=== PATIENT | female | born 1980 | race Two or more races ===

== ENCOUNTER → 2021-05-02 11:15 | Outpatient (BNVA) | payer MEDICAID, SELFPAY | PROVIDERS: PCP Internal Medicine | DX: R39.15 Urgency of urination (principal) | CPT/HCPCS: 51798; 99212 ==

== ENCOUNTER 2022-09-12 17:10 | Outpatient (REF) | payer MEDICAID, SELFPAY ==
--- NOTE | ~2022-09-12 | XR_ITS ---
EXAMINATION: XR FOOT, LEFT XR TOES, LEFT CLINICAL INFORMATION: Left great toe pain. COMPARISON: None available. TECHNIQUE: AP, lateral, and oblique views of the left foot. 2 views of the left great toe were obtained. FINDINGS: The bones and soft tissues are normal. No fracture, dislocation or left ankle joint effusion is seen. There is no abnormal bone erosion. Alignment is anatomic. Joint spaces are maintained. Bolus angle is normal. There is no calcaneal spur. XR/XR toe LT min 2V IMPRESSION: Normal left foot and great toe.
--- NOTE | ~2022-09-12 | XR_ITS ---
EXAMINATION: XR FOOT, LEFT XR TOES, LEFT CLINICAL INFORMATION: Left great toe pain. COMPARISON: None available. TECHNIQUE: AP, lateral, and oblique views of the left foot. 2 views of the left great toe were obtained. FINDINGS: The bones and soft tissues are normal. No fracture, dislocation or left ankle joint effusion is seen. There is no abnormal bone erosion. Alignment is anatomic. Joint spaces are maintained. Bolus angle is normal. There is no calcaneal spur. XR/XR foot LT min 3V IMPRESSION: Normal left foot and great toe.
== END 2022-09-12 17:11 | disposition home or self-care (01) ==
LOC: HO.XRAY 17:10
PROVIDERS: Absent Provider Internal Medicine; PCP Internal Medicine; Visit Provider Family Medicine
DX: M79.675 Pain in left toe(s) (principal); R60.0 Localized edema
CPT/HCPCS: 73630; 73660

== ENCOUNTER 2022-11-19 15:34 | Outpatient (REF) | payer MEDICAID, SELFPAY ==
--- NOTE | ~2022-11-19 | XR_ITS ---
EXAMINATION: XR KNEE, RIGHT CLINICAL INFORMATION: Pain COMPARISON: None available. TECHNIQUE: Four views of the right knee. FINDINGS: No evidence of acute fracture or dislocation.. Small-moderate joint effusion. Alignment is anatomic. Joint spaces are well maintained. No abnormal soft tissue calcification. XR/XR knee RT 3V IMPRESSION: No evidence of acute osseous abnormality. Small-moderate joint effusion.
--- NOTE | ~2022-11-19 | XR_ITS ---
EXAMINATION: XR ELBOW, RIGHT CLINICAL INFORMATION: Elbow pain 3 months COMPARISON: None available. TECHNIQUE: Four views of the right elbow. FINDINGS: No evidence of acute fracture or dislocation. No significant joint effusion. Alignment is anatomic. Joint spaces are maintained. No abnormal soft tissue calcification. XR/XR elbow RT min 3V IMPRESSION: No evidence of acute osseous abnormality.
== END 2022-11-19 15:35 | disposition home or self-care (01) ==
LOC: HO.HHCX 15:34
PROVIDERS: Visit Provider Emergency Medicine
DX: M25.561 Pain in right knee (principal); M25.521 Pain in right elbow
CPT/HCPCS: 73080; 73562

== ENCOUNTER 2023-01-01 14:05 | Emergency (ER) | payer MEDICAID, SELFPAY ==
[2023-01-01] VITALS (7 sets, daily range): BP systolic 97–125; BP diastolic 49–80; PULSE 61–84; RESP 16–20; TEMP 36.7; O2SAT 98–100; BMI 29.5
--- NOTE | 2023-01-01 14:21 | PC.NURSE ---
Arrived via ems from home complaining of nausea, and vomiting x 2 days.States 7/10 abdominal pain. Denies si/HI but states her son in this hospital a month ago and she has been having a hard time. States she has been drinking more than normal, not eating well, and smokes cigarettes and marijuana. Denies chest pain, sob, and diarrhea. States that takes saboxone daily and that she just took a small part of her normal dose.
--- NOTE | 2023-01-01 15:59 | ED.ABDPAIN ---
HPI - Abdominal Pain General Chief Complaint: Abdominal Pain Stated Complaint: nausea, vomiting x 2 days Time Seen by Provider: 01/01/23 14:50 Source: patient and EMS Mode of arrival: EMS Limitations: no limitations History of Present Illness HPI narrative: 42-year-old female with no major medical problems presents with epigastric abdominal pain. Pain is 7/10. The pain is epigastric. Does not radiate. Associated with nausea vomiting patient denies any diarrhea constipation. The pain can radiate up to her esophagus. She described as burning in nature. There are no clear relieving or exacerbating features patient also reports poor oral intake. Related Data Home Medications Medication Instructions Recorded Confirmed amitriptyline 10 mg tablet 10 mg PO BEDTIME 05/02/21 buprenorphine 4 mg-naloxone 1 mg 5 mg sublingual BID 05/02/21 sublingual film (Suboxone) clonazepam 1 mg tablet 1 mg PO TID PRN 05/02/21 duloxetine 20 mg capsule,delayed 20 mg PO DAILY 05/02/21 release omeprazole 20 mg capsule,delayed 20 mg PO DAILY 05/02/21 release ondansetron 4 mg disintegrating 4 mg PO Q12H PRN nausea 05/02/21 tablet quetiapine 25 mg tablet 25 mg PO BEDTIME 05/02/21 Previous Rx's Medication Instructions Recorded oxybutynin chloride 10 mg 10 mg PO DAILY OAB 30 days #90 tabs 10/01/21 tablet,extended release 24 hr dicyclomine 20 mg tablet 20 mg PO QID #20 tabs 01/01/23 omeprazole 40 mg capsule,delayed 40 mg PO DAILY #20 caps 01/01/23 release Allergies Allergy/AdvReac Type Severity Reaction Status Date / Time aspirin [ASPIRIN] Allergy Unknown SWELLING, Verified 05/02/21 11:32 hives Review of Systems Review of Systems CONSTITUTIONAL: Denies weight loss, fever and chills. HEENT: Denies changes in vision and hearing. RESPIRATORY: Denies SOB and cough. CV: Denies palpitations no CP. GI: + abdominal pain, nausea, vomiting no diarrhea. : Denies dysuria and urinary frequency. MSK: Denies myalgia and joint pain. SKIN: Denies rash and pruritus. NEUROLOGICAL: Denies headache and syncope. PSYCHIATRIC: Denies recent changes in mood. + anxiety and depression. All other ROS are negative unless in HPI PMFSH Past Medical History Medical History Anxiety Constipation Continuous severe abdominal pain Drug abuse and dependence Epigastric pain Gallstone Gastritis Headache, migraine History of kidney stones Insomnia Narcotic abuse Oropharyngeal dysphagia Overactive bladder Thalamic pain syndrome (hyperesthetic) Surgical History History of surgery Social History Social History Alcohol intake: current Alcohol intake frequency: 0-2 drinks per day Patient Tobacco Use Status: Current everyday Tobacco user Smoked in Last 30 Days: Yes Use of substances other than those prescribed or required for medical reasons: Yes Substance Use Type: Marijuana Any prior treatment program specific to substance use: Yes Advance Directives: No Advance Directives Information Provided: Yes Patient : No Physical Exam ED Vital Signs: Vital Signs - 24 hr 01/01/23 14:14 01/01/23 14:30 01/01/23 16:00 Temperature 98.1 F 98.1 F Pulse Rate 84 84 80 Respiratory Rate 18 18 18 Blood Pressure 116/73 116/73 116/67 Pulse Oximetry 100 100 98 Oxygen Delivery Method Room Air Room Air Room Air 01/01/23 17:59 01/01/23 19:07 01/01/23 20:00 Temperature 98.1 F Pulse Rate 63 69 62 Respiratory Rate 18 20 16 Blood Pressure 114/54 L 99/51 L 101/49 L Pulse Oximetry 98 99 98 Oxygen Delivery Method Room Air Room Air Room Air BMI result Body Mass Index 29.5 GEN: Well developed, no acute distress, alert, oriented HEENT: Normocephalic, atraumatic, normal external ears, nose appears normal, no oropharyngeal edema or exudates Eyes: Normal to appearance Neck: Supple, no lymphadenopathy Respiratory: Talks in complete sentences, no respiratory distress, clear to auscultation bilaterally Cardiovascular: Regular rate and rhythm, no murmurs rubs or gallops Abdomen: Soft, nontender, nondistended, no guarding, no rebound Back: No CVA tenderness Extremities: No clubbing cyanosis or edema Neurologic: No focal neurologic deficits, cranial nerves 2-12 intact, strength is 5/5 bilaterally Skin: No rash Course Course Course Narrative: Patient is complaining of epigastric abdominal pain. She does have elevated LFTs. Bilirubin is also normal as is alk-phos. I suspect this is alcohol related given the pattern. Will order an ultrasound. Lipase is normal arguing against acute pancreatitis. I still suspect patient has gastritis. Will order complete abdominal ultrasound. Reevaluation(s) Reevaluation #1: Patient's workup is complete. Ultrasound did not show any 6 acute abnormalities of the aorta including no aneurysm or obvious dissection. She had no evidence of biliary obstruction. There is a nonobstructing kidney stone on left but this is not causing her symptoms. Patient now reports having had nausea vomiting for 5 years. 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 At this time, I will try Reglan 10 mg 4 times daily including 30 minutes before eating and once before bed. I will also start the patient on omeprazole 40 mg daily. Time: 21:13 Medical Decision Making Medical Decision Making [facility] Narrative: 42-year-old female presents with epigastric abdominal pain. Pain is rated as 7/10. However, patient's abdominal exam is benign. There is no epigastric tenderness, rebound or guarding. Negative Mcallister sign, negative McBurney's point tenderness. There is no abdominal distention. Differential diagnosis includes abdominal pain, gastritis, peptic ulcer disease, pancreatitis, IBD, IBS, gastroenteritis, biliary colic, cardiac, unlikely to be AAA, dissection Plan: Check routine laboratory analysis, symptomatic relief with PPI, antiemetic, GI cocktail. Will re-evaluate. If her abdominal tenderness exam changes, would consider imaging either ultrasound or CT scan. Disposition: I suspect patient will be able to be discharged. However, possible admission for uncontrolled abdominal pain or significant acute findings. Differential Diagnosis Differential Diagnoses: The differential diagnosis associated with the presentation includes (See above) Chronic nausea, epigastric abdominal pain Admission/Observation Consideration of admission/observation: Escalation of care including admission/observation considered Lab Data [facility] Lab Attestation statement: I reviewed the patient's lab results. 01/01/23 15:38 01/01/23 15:38 Labs: Lab Results 01/01/23 01/01/23 01/01/23 Range/Units 15:38 15:38 15:38 WBC 8.2 (4.8-10.8) X10*3/uL RBC 4.39 (4.20-5.50) X10*6/uL Hgb 13.2 (12.0-16.0) g/dl Hct 39.1 (37.0-47.0) % MCV 89.1 (80.0-98.0) fL MCH 30.1 (27.0-33.0) pg MCHC 33.8 (31.0-35.0) g/dl RDW 13.7 (11.0-16.0) % Plt Count 263 (160-400) X10*3/uL MPV 9.5 (9.4-12.3) fL Immature Gran % (Auto) 0.4 (0.0-0.4) % Neut % (Auto) 79.8 H (45-73) % Lymph % (Auto) 14.5 L (20-40) % [place] % (Auto) 5.1 (2-11) % Eos % (Auto) 0.0 (0-4) % Baso % (Auto) 0.2 (0-2) % Lymph # (Auto) 1.2 (1.2-4.9) X10*3/uL [place] # (Auto) 0.4 (0.1-1.2) X10*3/uL Eos # (Auto) 0.0 (0.0-0.4) X10*3/uL Baso # (Auto) 0.0 (0.0-0.2) X10*3/uL Abs Immat Gran (auto) 0.03 (0.00-0.03) X10*3/uL Absolute Neuts (auto) 6.6 (2.0-8.3) x10*3/uL Absolute Nucleated RBC 0.000 (0.0-0.012) X10*3/uL Nucleated RBC % (auto) 0.0 (0.0-0.2) /100WBC Sodium 143 (135-145) mmol/L Potassium 4.6 (3.3-5.1) mmol/L Chloride 107 (96-108) mmol/L Carbon Dioxide 25 (22-29) mmol/L Anion Gap 16 (12-20) BUN 7 L (9-16) mg/dL Creatinine 0.73 (0.5-1.4) mg/dL Estim Creat Clear Calc 111.4 Estimated GFR > 60 Random Glucose 103 (60-115) mg/dL Calcium 9.4 (8.4-10.2) mg/dL Total Bilirubin 0.6 (0.0-1.0) mg/dL AST 209 H (5-31) U/L ALT 125 H (0-31) U/L Alkaline Phosphatase 107 (39-117) U/L Troponin I High Sens < 2.7 (<3.5-17.0) ng/L Total Protein 8.3 H (6.5-8.0) g/dL Albumin 4.5 (3.5-5.0) g/dL Lipase (8-78) U/L Urine Color Urine Appearance Urine pH (5.0-9.0) Ur Specific [place] (1.005-1.025) Urine Protein (Neg-Trace) mg/dL Urine Glucose (UA) (Negative) mg/dL Urine Ketones (Negative) mg/dL Urine Blood (Negative) Urine Nitrite (Negative) Ur Leukocyte Esterase (Negative) Urine Opiates Screen (Not Detect) Urine Fentanyl Screen (Not Detect) Ur Barbiturates Screen (Not Detect) Ur Phencyclidine Scrn (Not Detect) Ur Amphetamines Screen (Not Detect) U Benzodiazepines Scrn (Not Detect) Urine Cocaine Screen (Not Detect) U Marijuana (THC) Screen (Not Detect) Ethyl Alcohol mg/dL 01/01/23 01/01/23 01/01/23 Range/Units 15:38 18:33 18:33 WBC (4.8-10.8) X10*3/uL RBC (4.20-5.50) X10*6/uL Hgb (12.0-16.0) g/dl Hct (37.0-47.0) % MCV (80.0-98.0) fL MCH (27.0-33.0) pg MCHC (31.0-35.0) g/dl RDW (11.0-16.0) % Plt Count (160-400) X10*3/uL MPV (9.4-12.3) fL Immature Gran % (Auto) (0.0-0.4) % Neut % (Auto) (45-73) % Lymph % (Auto) (20-40) % [place] % (Auto) (2-11) % Eos % (Auto) (0-4) % Baso % (Auto) (0-2) % Lymph # (Auto) (1.2-4.9) X10*3/uL [place] # (Auto) (0.1-1.2) X10*3/uL Eos # (Auto) (0.0-0.4) X10*3/uL Baso # (Auto) (0.0-0.2) X10*3/uL Abs Immat Gran (auto) (0.00-0.03) X10*3/uL Absolute Neuts (auto) (2.0-8.3) x10*3/uL Absolute Nucleated RBC (0.0-0.012) X10*3/uL Nucleated RBC % (auto) (0.0-0.2) /100WBC Sodium (135-145) mmol/L Potassium (3.3-5.1) mmol/L Chloride (96-108) mmol/L Carbon Dioxide (22-29) mmol/L Anion Gap (12-20) BUN (9-16) mg/dL Creatinine (0.5-1.4) mg/dL Estim Creat Clear Calc Estimated GFR Random Glucose (60-115) mg/dL Calcium (8.4-10.2) mg/dL Total Bilirubin (0.0-1.0) mg/dL AST (5-31) U/L ALT (0-31) U/L Alkaline Phosphatase (39-117) U/L Troponin I High Sens (<3.5-17.0) ng/L Total Protein (6.5-8.0) g/dL Albumin (3.5-5.0) g/dL Lipase 12 (8-78) U/L Urine Color Yellow Urine Appearance Clear Urine pH 7.5 (5.0-9.0) Ur Specific [place] 1.020 (1.005-1.025) Urine Protein Trace (Neg-Trace) mg/dL Urine Glucose (UA) Negative (Negative) mg/dL Urine Ketones Negative (Negative) mg/dL Urine Blood Negative (Negative) Urine Nitrite Negative (Negative) Ur Leukocyte Esterase Negative (Negative) Urine Opiates Screen Not Detected (Not Detect) Urine Fentanyl Screen Not Detected (Not Detect) Ur Barbiturates Screen Not Detected (Not Detect) Ur Phencyclidine Scrn Not Detected (Not Detect) Ur Amphetamines Screen Not Detected (Not Detect) U Benzodiazepines Scrn Not Detected (Not Detect) Urine Cocaine Screen Not Detected (Not Detect) U Marijuana (THC) Screen POSITIVE H (Not Detect) Ethyl Alcohol < 10 mg/dL Independent Interpretation I performed an independent interpretation of an: EKG (Normal sinus rhythm heart rate 65, normal intervals, no acute ST elevations or depressions) and Ultrasound (No acute findings) Radiology Impression Discussion of test interpretation with radiology: I have reviewed the radiologist's reading. ( US/US abdomen complete IMPRESSION: Left renal stone otherwise unremarkable exam. Dictated By:Louise Burgess MDSigned By:<Electronically signed by Louise Burgess MD in [place]>01/01/232027) Tests considered The following testing was considered but not selected: Ultrasound, CT Prescription Management I considered prescription management with: Pain Medication Chronic Conditions Patient?s care impacted by: Other (Psychological disorders) Medications Administered Discontinued Medications Generic Name Dose Route Start Last Admin Trade Name Freq PRN Reason Stop Dose Admin Al Hydroxide/Mg Hydroxide 30 ml 01/01/23 14:54 01/01/23 16:18 Magnesium Hydrox/Alum Hydrox 30 Ml Oral.Susp PO 01/01/23 14:55 30 ml ONCE ONE Administration Belladonna Alkaloids/Phenobarbital 10 ml 01/01/23 14:54 01/01/23 16:18 Phenobarb/Hyoscy/Atropine/Scop 10 Ml Elixir PO 01/01/23 14:55 10 ml ONCE ONE Administration Famotidine 20 mg 01/01/23 14:54 01/01/23 16:21 Famotidine/Pf 20 Mg/2 Ml Vial IVPUSH 01/01/23 14:55 20 mg ONCE ONE Administration Sodium Chloride 1,000 mls @ 999 mls/hr 01/01/23 15:00 01/01/23 17:58 Ns IV 01/01/23 16:00 Infused .Q1H1M ARUN Infusion Morphine Sulfate 2 mg 01/01/23 19:18 01/01/23 19:28 Morphine Sulfate 2 Mg/Ml Cartridge IVPUSH 01/01/23 19:19 2 mg ONCE ONE Administration Protocol Ondansetron HCl 4 mg 01/01/23 14:54 01/01/23 16:17 Ondansetron Hcl 4 Mg/2 Ml Vial IVPUSH 01/01/23 14:55 4 mg ONCE ONE Administration Discharge Plan Discharge Clinical Impression: Abdominal pain, Nausea, Elevated liver enzymes Patient Disposition: Home, Self-Care Instructions: Irritable Bowel Syndrome (ED), Grief and Loss (ED), Acute Nausea and Vomiting (ED), Abdominal Pain (ED) Prescriptions: New dicyclomine 20 mg tablet 20 mg PO QID Qty: 20 0RF Rx Instructions: 30 min before meals, 30 min before bed omeprazole 40 mg capsule,delayed release(DR/EC) 40 mg PO DAILY Qty: 20 0RF No Action oxybutynin chloride 10 mg tablet extended release 24hr 10 mg PO DAILY 30 Days Qty: 90 1RF Referrals: [facility] [Provider Group] - 1 week [facility] [Primary Care Provider] - 2 days Og Encinas [Physician] - 2 weeks
== END 2023-01-01 21:34 | disposition home or self-care (01) ==
PROVIDERS: Emergency Provider Emergency Medicine
DX: R10.10 Upper abdominal pain, unspecified (principal); R11.2 Nausea with vomiting, unspecified; R74.8 Abnormal levels of other serum enzymes; F19.10 Other psychoactive substance abuse, uncomplicated; F11.20 Opioid dependence, uncomplicated; F12.90 Cannabis use, unspecified, uncomplicated; F17.200 Nicotine dependence, unspecified, uncomplicated; Z79.899 Other long term (current) drug therapy
CPT/HCPCS: 36415; 76700; 80053; 80307; 81003; 83690; 84484; 85025; 93005; 96361; 96374; 96375; 96376; 99284; 99285; J2270; J2405

== ENCOUNTER 2023-06-29 13:49 | Emergency (ER) | payer MEDICAID, SELFPAY ==
--- NOTE | ~2023-06-29 | CT_ITS ---
EXAMINATION: CT ABDOMEN AND PELVIS WITHOUT CONTRAST CLINICAL INFORMATION: LLQ pain R/o diverticulitis versus kidney stone. COMPARISON: 07/28/2018. TECHNIQUE: Multidetector volumetric imaging was performed from the superior aspect of the liver through the pubic symphysis without contrast per renal stone protocol. Sagittal and coronal reformatted images were obtained on the technologist workstation. This CT examination was performed using dose optimization techniques as appropriate, variously including the following: *Automated exposure control *Adjustment of mA and/or kV according to patient size (this includes techniques or standardized protocols for targeted exams where dose is matched to indication/reason for exam; i.e. extremities or head) *Use of iterative reconstruction technique DLP: 978 mGy-cm. FINDINGS: LUNG BASES: Minimal linear atelectasis at the right lung base. LIVER, GALLBLADDER, BILIARY TREE: The non-contrast liver is normal in size, shape, and attenuation. No focal hepatic lesion or biliary ductal dilatation is present. The gallbladder surgically absent PANCREAS: Unremarkable. SPLEEN: Unremarkable. ADRENAL GLANDS: Unremarkable. KIDNEYS AND URETERS: There is left-sided hydronephrosis and hydroureter. The left ureter is dilated throughout its course up to a 1.1 and 0.6 and meter calculi in the distal left ureter just proximal to the left ureterovesicular junction. No obvious intrarenal calculi. Contralateral right kidney demonstrates a low-attenuation lower pole cyst but no obstructive changes or calculi in the contralateral right kidney. BLADDER: Decompressed but otherwise unremarkable GASTROINTESTINAL TRACT: The small and large bowel are unremarkable. The appendix is unremarkable. ABDOMINAL WALL: No significant hernia is appreciated. LYMPHOVASCULAR STRUCTURES: No lymphadenopathy. The aorta is unremarkable.. PELVIC VISCERA: Unremarkable. OSSEUS STRUCTURES: Mild degenerative changes at L4/L5 CT/CT abdomen pelvis wo IV con IMPRESSION: Left-sided hydronephrosis and hydroureter extending up to 2 separate calculi in the distal left ureter just proximal to the left ureterovesicular junction as described above.
[2023-06-29 14:09] VITALS: BP 122/65; PULSE 116; O2SAT 100
--- NOTE | 2023-06-29 16:15 | ED.GENADULT ---
HPI - General Adult General Chief complaint: Psychiatric Symptoms Stated complaint: abd pain x 3-4 months Time Seen by Provider: 06/29/23 17:26 Source: patient, EMS and clinical rehabilitation aide Mode of arrival: EMS Limitations: no limitations History of Present Illness HPI narrative: 42-year-old female Greek-speaking came in for evaluation of multiple symptoms. 1. Left lower quadrant abdominal pain for the past 4 months patient did not seek medical attention because she is scared of hospital lost her son 6 months ago, pain described as chronic and constant for the past 4 months localized to the left lower quadrant area associated with nausea and vomiting, patient also described frequency urination and dysuria. no diarrhea with a normal bowel movement and passing flatus. Sexually not active for the past 2 years no vaginal discharge no vaginal and abnormal bleed. Patient had history of cholecystectomy and tubal ligation. 2. Patient is also been having depression for the past 6 months, history of schizophrenia admitted to visual and auditory hallucination, patient sometimes feel suicidal she wanted to jump out of the building sometimes, stated that she want do it because of her congregation believes. Patient is tearful during the interview. Related Data Home Medications Medication Instructions Recorded Confirmed amitriptyline 10 mg tablet 10 mg PO BEDTIME 05/02/21 buprenorphine 4 mg-naloxone 1 mg 5 mg sublingual BID 05/02/21 sublingual film (Suboxone) clonazepam 1 mg tablet 1 mg PO TID PRN anxiety 05/02/21 06/29/23 duloxetine 20 mg capsule,delayed 20 mg PO DAILY 05/02/21 release omeprazole 20 mg capsule,delayed 20 mg PO DAILY 05/02/21 release ondansetron 4 mg disintegrating 4 mg PO Q12H PRN nausea 05/02/21 tablet quetiapine 25 mg tablet 25 mg PO BEDTIME 05/02/21 06/29/23 buprenorphine 4 mg-naloxone 1 mg 1 film sublingual Q12H 06/29/23 06/29/23 sublingual film (Suboxone) Previous Rx's Medication Instructions Recorded oxybutynin chloride 10 mg 10 mg PO DAILY OAB 30 days #90 tabs 10/01/21 tablet,extended release 24 hr dicyclomine 20 mg tablet 20 mg PO QID #20 tabs 01/01/23 omeprazole 40 mg capsule,delayed 40 mg PO DAILY #20 caps 01/01/23 release cefuroxime axetil 500 mg tablet 500 mg PO BID 7 days #14 tabs 06/29/23 ketorolac 10 mg tablet 10 mg PO Q8H PRN pain #14 tabs 06/29/23 ondansetron 4 mg disintegrating 4 mg PO Q6-8H PRN nausea and 06/29/23 tablet vomiting #5 tabs prednisone 20 mg tablet 20 mg PO DAILY #3 tabs 06/29/23 tamsulosin 0.4 mg capsule (Flomax) 0.4 mg PO DAILY #7 caps 06/29/23 Allergies Allergy/AdvReac Type Severity Reaction Status Date / Time aspirin [ASPIRIN] Allergy Unknown SWELLING, Verified 06/29/23 16:16 hives Review of Systems Review of Systems: All other systems are reviewed and are negative Constitutional: Reports as per HPI and Reports no additional constitutional complaints Eyes: Reports as per HPI and Reports no additional eye complaints Reports system reviewed and no additional complaints, except as documented Cardiovascular: Reports as per HPI and Reports no additional cardiovascular complaints Respiratory: Reports as per HPI and Reports no additional respiratory complaints Gastrointestinal: Reports as per HPI and Reports no additional gastrointestinal complaints Genitourinary: Reports no additional female genitourinary complaints Musculoskeletal: Reports no additional musculoskeletal complaints Skin/Breast: Reports system reviewed and no additional complaints, except as docu Psychiatric: Reports no additional psychiatric complaints Endocrine: Reports no additional endocrine complaints Hematologic/Lymphatic: Reports no additional hematologic/lymphatic complaints Allergic/Immunologic: Reports no additional allergic/immunologic complaints Reports system reviewed and no additional complaints, except as documented and Reports Abnormal speech present [facility] Past Medical History Medical History Overactive bladder Narcotic abuse History of kidney stones Gastritis Headache, migraine Insomnia Anxiety Oropharyngeal dysphagia Gallstone Drug abuse and dependence Constipation Epigastric pain Continuous severe abdominal pain Thalamic pain syndrome (hyperesthetic) Surgical History History of surgery Social History Social History Alcohol intake: former Patient Tobacco Use Status: Current everyday Tobacco user Smoked in Last 30 Days: Yes Use of substances other than those prescribed or required for medical reasons: Yes Substance Use Type: Marijuana Advance Directives: No Advance Directives Information Provided: No Physical Exam ED Vital Signs: Vital Signs - 24 hr 06/29/23 16:16 06/29/23 18:00 06/29/23 20:38 Temperature 97.9 F 98.7 F Pulse Rate 110 H 71 81 Respiratory Rate 22 H 18 16 Blood Pressure 126/102 H 112/61 105/66 Pulse Oximetry 93 98 100 Oxygen Delivery Method Room Air Room Air BMI result Body Mass Index 32.4 Vital signs have been reviewed and appear to be correct. Blood pressure elevated. Heart rate normal. Respiratory rate normal. Temperature normal. Oxygen saturation normal. Appearance: Alert. Oriented X3. No acute distress. Head: Normal external exam. Normocephalic. Atraumatic. No Bynum signs noted. No raccoon eyes noted Eyes: PERRLA. EOMI. Conjunctiva and sclera normal. Eyelids normal. ENT: TM's Normal. Pharynx normal. Uvula midline. Moist mucous membranes. No trismus noted. No drooling noted. No muffled voice noted. Neck: Normal inspection. Neck supple. FROM. No adenopathy. Thyroid Normal. No meningeal signs. No neck mass noted. CVS: Normal heart rate and rhythm. Heart sound normal. No murmurs noted. Pulses normal throughout. Respiratory: No respiratory distress. Painless inspiration. Breath sounds normal. No wheezes/rales/rhonchi noted. Chest nontender. No accessory muscle usage noted or decreased air movement noted. Abdomen: Soft, LLQ tenderness, no guarding, no rebound tenderness. Bowel sounds normal in all 4 quadrants. No distention noted. No organomegaly noted. No visible injury noted. Back: No CVA tenderness. Full range of motion noted. Skin: Skin warm and dry. Normal skin color. Normal skin turgor. No rashes/lesions/lacerations noted. Extremities: No lower extremity edema. Extremities exhibit normal range of motion. Extremities nontender. Neuro: Oriented X 3. Cranial nerve exam: II-XII are grossly intact No motor deficit. No sensory deficit. Reflexes normal. Patient Orientation: Person, Place, Time and Situation, okay hygiene and grooming. Fair eye contact, attentive, no tics or tremors. Level of Consciousness: Awake, Appropriate and Alert Patient Behavior: Appropriate, Guarded, Cooperative and Anxious Mood Description: Constricted, Blunted and Apprehensive Affect Description: Constricted, Blunted and Apprehensive Patient Cognition Impaired: No Ability to Follow Directions: Excellent Speech Pattern: Clear, Appropriate and Spontaneous Speech, nonpressured, spontaneous with regular rate and rhythm, normal volume and prosody. No dysarthria. Memory Description: Intact, Immediate Intact and Short Term Intact Hallucinations: Report was visual and auditory hallucination. Delusions: Not Present Thought Process: Intact Thought Content: positive for Intact, positive for Logical, denies Homicidal Ideation , have suicidal ideation on and off by jumping of the building. Depressive Symptoms: Not present. Judgement and Insight: Limited but adequate. Course Course Course Narrative: This is a rapid medical exam: Additional HPI, ROS, PE not included below will be deferred to primary provider. Patient is a 42-year-old female with history of cholecystectomy, hysterectomy, overactive bladder presenting to the ED via ambulance with complaint of abdominal distention for the past 4 months. Also states that she is schizophrenic and is having visual hallucinations and wants to jump out the window. Recently lost her son. States she has been taking her medications as prescribed. Has also had nausea and vomiting. Reports sweating, subjective fever. Reports dysuria and frequency. Speech is rapid and pressured, patient tearful in triage. Took 800mg ibuprofen prior to arrival so denies current abdominal pain. Plan: labs, UA, medical charge entry specialist notified of psychiatric symptoms Reevaluation(s) Reevaluation #1: left ureteral kidney stone with hydronephrosis and UTI the case was discussed with Dr. Browning who recommended IV fluids and IV Rocephen and send her home with zofran 8 mg Q8h, prednisone 20mg qd x3 and Flomax with Toradol and Ceftin 500 mg bid for 7 days. patient is cleared medically will be moved to the POD for further evaluation by care team in the a.m. will start physician observation. Time: 23:33 Medications Administered Generic Name Dose Route Start Last Admin Trade Name Freq PRN Reason Stop Dose Admin Buprenorphine/Naloxone 1 film 06/29/23 21:15 06/29/23 21:31 Buprenorphine/Naloxone 4/1 Mg Film SUBLINGUAL 1 film Q12H ARUN Administration Clonazepam 1 mg 06/29/23 21:02 06/29/23 21:45 Clonazepam 1 Mg Tablet PO 1 mg TID PRN Administration anxiety Quetiapine Fumarate 25 mg 06/29/23 21:15 06/29/23 21:45 Quetiapine Fumarate 25 Mg Tablet PO 25 mg BEDTIME ARUN Administration Discontinued Medications Generic Name Dose Route Start Last Admin Trade Name Chely PRN Reason Stop Dose Admin Cefuroxime Axetil 500 mg 06/29/23 18:45 06/29/23 21:45 Cefuroxime Axetil 500 Mg Tablet PO 06/29/23 18:46 Not Given ONCE ONE Ceftriaxone Sodium 1 gm/ 50 mls @ 100 mls/hr 06/29/23 21:02 06/29/23 22:15 Sodium Chloride IV 06/29/23 21:31 Infused ONCE ONE Infusion Sodium Chloride 1,000 mls @ 999 mls/hr 06/29/23 21:02 06/29/23 23:10 Ns IV 06/29/23 22:02 Infused .Q1H1M ONE Infusion Ketorolac Tromethamine 30 mg 06/29/23 17:51 06/29/23 18:26 Ketorolac Tromethamine 30 Mg/Ml Vial IVPUSH 06/29/23 17:52 30 mg ONCE ONE Administration Ketorolac Tromethamine 15 mg 06/29/23 23:06 06/29/23 23:13 Ketorolac Tromethamine 15 Mg/Ml Vial IVPUSH 06/29/23 23:07 15 mg ONCE ONE Administration Ondansetron HCl 4 mg 06/29/23 21:02 06/29/23 21:45 Ondansetron Hcl 4 Mg/2 Ml Vial IVPUSH 06/29/23 21:03 4 mg ONCE ONE Administration Medical Decision Making Differential Diagnosis Differential Diagnoses: The differential diagnosis associated with the presentation includes ( depression, SI, diverticulitis, colitis, renal colic and kidney stones, pyelonephritis, UTI, , electrolyte abnormality, severe anemia.) Admission/Observation Consideration of admission/observation: Escalation of care including admission/observation considered Consult Healthcare Provider Management of the patient was discussed with: Fire Regulator (Dr. Santa Browning) Lab Data MDM Lab Attestation statement: I reviewed the patient's lab results. 06/29/23 17:56 06/29/23 17:56 Labs: Lab Results 06/29/23 06/29/23 06/29/23 Range/Units 17:55 17:56 17:57 WBC 7.9 (4.8-10.8) X10*3/uL RBC 4.25 (4.20-5.50) X10*6/uL Hgb 12.7 (12.0-16.0) g/dl Hct 38.1 (37.0-47.0) % MCV 89.6 (80.0-98.0) fL MCH 29.9 (27.0-33.0) pg MCHC 33.3 (31.0-35.0) g/dl RDW 13.5 (11.0-16.0) % Plt Count 262 (160-400) X10*3/uL MPV 9.5 (9.4-12.3) fL Immature Gran % (Auto) 0.3 (0.0-0.4) % Neut % (Auto) 76.1 H (45-73) % Lymph % (Auto) 20.1 (20-40) % Wise % (Auto) 3.1 (2-11) % Eos % (Auto) 0.1 (0-4) % Baso % (Auto) 0.3 (0-2) % Lymph # (Auto) 1.6 (1.2-4.9) X10*3/uL Wise # (Auto) 0.2 (0.1-1.2) X10*3/uL Eos # (Auto) 0.0 (0.0-0.4) X10*3/uL Baso # (Auto) 0.0 (0.0-0.2) X10*3/uL Abs Immat Gran (auto) 0.02 (0.00-0.03) X10*3/uL Absolute Neuts (auto) 6.0 (2.0-8.3) x10*3/uL Absolute Nucleated RBC 0.000 (0.0-0.012) X10*3/uL Nucleated RBC % (auto) 0.0 (0.0-0.2) /100WBC Hold Purple Top SEE NOTE PT 11.8 (11.1-13.3) SEC INR 1.0 (0.9-1.1) Sodium 142 (135-145) mmol/L Potassium 4.4 (3.3-5.1) mmol/L Chloride 107 (96-108) mmol/L Carbon Dioxide 26 (22-29) mmol/L Anion Gap 13 (12-20) BUN 10 (9-16) mg/dL Creatinine 0.77 (0.5-1.4) mg/dL Estim Creat Clear Calc 110.8 Estimated GFR > 60 Random Glucose 104 (60-115) mg/dL Calcium 9.5 (8.4-10.2) mg/dL Total Bilirubin 0.3 (0.0-1.0) mg/dL AST 19 (5-31) U/L ALT 12 (0-31) U/L Alkaline Phosphatase 73 (39-117) U/L Total Protein 8.1 H (6.5-8.0) g/dL Albumin 4.4 (3.5-5.0) g/dL Beta HCG, Quant < 2 mIU/mL Urine Color Yellow Urine Appearance Cloudy Urine pH 6.0 (5.0-9.0) Ur Specific [place] >= 1.030 H (1.005-1.025) Urine Protein 30 (1+) H (Neg-Trace) mg/dL Urine Glucose (UA) Negative (Negative) mg/dL Urine Ketones Trace (Negative) mg/dL Urine Blood Moderate (2+) H (Negative) Urine Nitrite Negative (Negative) Ur Leukocyte Esterase Trace H (Negative) Urine RBC >20 H (0-2) /HPF Urine WBC 11-20 H (0-5) /HPF Ur Squamous Epith Cells 11-20 (0-2) /HPF Urine Bacteria 2+ (None Seen) Hyaline Casts 3-5 (0-2) /LPF Urine Test NEGATIVE (NEGATIVE) Urine Opiates Screen Not Detected (Not Detect) Urine Fentanyl Screen Not Detected (Not Detect) Ur Barbiturates Screen Not Detected (Not Detect) Ur Phencyclidine Scrn Not Detected (Not Detect) Ur Amphetamines Screen Not Detected (Not Detect) U Benzodiazepines Scrn Not Detected (Not Detect) Urine Cocaine Screen Not Detected (Not Detect) U Marijuana (THC) Screen POSITIVE H (Not Detect) Ethyl Alcohol < 10 mg/dL COVID-19 (JAXON) Negative (Negative) COVID-19 Clin Com See Note Influenza Type A (BETINA) Negative (Negative) Influenza Type B (BETINA) Negative (Negative) Influenza A & B Note See Note Independent Interpretation I performed an independent interpretation of an: CT Scan ( Abdomen and pelvis :Left-sided hydronephrosis and hydroureter extending up to 2 separate calculi in the distal left ureter just proximal to the left ureterovesicular junction as described above. ) Radiology Impression Discussion of test interpretation with radiology: I have reviewed the radiologist's reading. Discharge Plan Discharge Clinical Impression: Suicidal ideation, UTI (urinary tract infection), Calculus of left ureter Patient Disposition: Home, Self-Care Instructions: Urinary Tract Infection in Women (DC), Renal Colic (ED) Prescriptions: New cefuroxime axetil 500 mg tablet 500 mg PO BID 7 Days Qty: 14 0RF prednisone 20 mg tablet 20 mg PO DAILY Qty: 3 0RF tamsulosin [Flomax] 0.4 mg capsule 0.4 mg PO DAILY Qty: 7 0RF ondansetron 4 mg tablet,disintegrating 4 mg PO Q6-8H PRN (Reason: nausea and vomiting) Qty: 5 0RF ketorolac 10 mg tablet 10 mg PO Q8H PRN (Reason: pain) Qty: 14 0RF No Action oxybutynin chloride 10 mg tablet extended release 24hr 10 mg PO DAILY 30 Days Qty: 90 1RF buprenorphine-naloxone [Suboxone] 4-1 mg film 1 film sublingual Q12H dicyclomine 20 mg tablet 20 mg PO QID Qty: 20 0RF Rx Instructions: 30 min before meals, 30 min before bed omeprazole 40 mg capsule,delayed release(DR/EC) 40 mg PO DAILY Qty: 20 0RF clonazepam 1 mg tablet 1 mg PO TID PRN (Reason: anxiety ) quetiapine 25 mg tablet 25 mg PO BEDTIME Referrals: Santa Celaya MD [Physician] - Interventions: [place]-Suicide Risk Severity Scale Last Done: 06/29/23 18:15
[2023-06-29 16:16] VITALS: BP 126/102; PULSE 110; RESP 22; TEMP 36.6; O2SAT 93; BMI 32.4
[2023-06-29 18:00] VITALS: BP 112/61; PULSE 71; RESP 18; TEMP 37.1; O2SAT 98
[2023-06-29 18:01] LABS: MANUAL DIFF FLAG NO
[2023-06-29 18:03] LABS: Basophils Percent Auto 0.3 % (0-2); Eosinophils Percent Auto 0.1 % (0-4); Hematocrit 38.1 % (37.0-47.0); Hemoglobin 12.7 g/dl (12.0-16.0); Imm Gran Abs Auto 0.02 X10*3/uL (0.00-0.03); Imm Gran Pct Auto 0.3 % (0.0-0.4); Lymphocytes Absolute Auto 1.6 X10*3/uL (1.2-4.9); Lymphocytes Percent Auto 20.1 % (20-40); Mean Corpuscular HGB Conc 33.3 g/dl (31.0-35.0); Mean Corpuscular Hemoglobin 29.9 pg (27.0-33.0); Mean Corpuscular Volume 89.6 fL (80.0-98.0); Mean Platelet Volume 9.5 fL (9.4-12.3); Monocytes Absolute Auto 0.2 X10*3/uL (0.1-1.2); Monocytes Percent Auto 3.1 % (2-11); Neutrophils Percent Auto 76.1 % (45-73); Platelet Count 262 X10*3/uL (160-400); Red Blood Count 4.25 X10*6/uL (4.20-5.50); Red Cell Distribution Width 13.5 % (11.0-16.0); White Blood Count 7.9 X10*3/uL (4.8-10.8)
[2023-06-29 18:04] LABS: Appearance Urine Cloudy; Color Urine Yellow; Glucose Urine UA Negative (Negative); Leukocyte Esterase Urine Trace (Negative); Nitrite Urine Negative (Negative); Specific Gravity - Urine >= 1.030 (1.005-1.025); UMIC TRIGGER UACC YES; Urine Blood Moderate (2+) (Negative); Urine Ketones Trace mg/dL (Negative); Urine Protein 30 (1+) mg/dL (Neg-Trace)
[2023-06-29 18:11] LABS: Bacteria Urine 2+ (None Seen); Prothrombin Time 11.8 SEC (11.1-13.3); RBC Urine >20 /HPF (0-2); UACC Culture Trigger YES
[2023-06-29 18:14] LABS: Amphetamine Screen Urine Not Detected (Not Detect); Barbiturates, Urine Not Detected (Not Detect); Benzodiazepines Screen Urine Not Detected (Not Detect); Cannabinoid Screen Urine POSITIVE (Not Detect); Cocaine Screen Urine Not Detected (Not Detect); Fentanyl, urine Not Detected (Not Detect); Opiate Screen Urine Not Detected (Not Detect); Phencyclidine Screen Urine Not Detected (Not Detect)
--- NOTE | 2023-06-29 18:16 | PC.NURSE ---
Alert and oriented, reports has had abdominal pain x months but pain was worse today. denies HI but states has thoughts of SI with plan to jump out window. Reports she hears and sees things that she knows are not there. Reports son in this hospital from an overdose almost a year ago and she has PTSD 1:1 at bedside for safety
[2023-06-29 18:21] LABS: COVID-19 Test Negative (Negative); IDNOW Serial# 08D9AD1C
[2023-06-29 18:26] LABS: IDNOW Serial# BCCEAD1C; Influenza A Negative (Negative); Influenza B2 Negative (Negative)
[2023-06-29] MEDS: Ketorolac Tromethamine 30 MG/ML VIAL IVPUSH (18:26)
[2023-06-29 18:28] LABS: Alanine Aminotransferase 12 U/L (0-31); Albumin Level 4.4 g/dL (3.5-5.0); Alkaline Phosphatase 73 U/L (39-117); Anion Gap 13 (12-20); Aspartate Amino Transferase 19 U/L (5-31); Bilirubin Total 0.3 mg/dL (0.0-1.0); Blood Urea Nitrogen 10 mg/dL (9-16); Calcium 9.5 mg/dL (8.4-10.2); Carbon Dioxide 26 mmol/L (22-29); Chloride 107 mmol/L (96-108); Creatinine Clr Calc Pharmacy 110.8; Estimated Glomerular Filt Rate > 60; Ethanol < 10 mg/dL; Glucose Random 104 mg/dL (60-115); HCG Quantitative < 2 mIU/mL; Potassium 4.4 mmol/L (3.3-5.1); Sodium 142 mmol/L (135-145); Total Protein 8.1 g/dL (6.5-8.0)
[2023-06-29 18:38] LABS: UPreg QC Valid YES; Urine Pregnancy NEGATIVE (NEGATIVE)
[2023-06-29 20:38] VITALS: BP 105/66; PULSE 81; RESP 16; O2SAT 100
[2023-06-29] MEDS: Buprenorphine/Naloxone 4/1 mg FILM 1 FILM SUBLINGUAL (21:31)
[2023-06-29] MEDS: cefTRIAXone sodium 1 GM in 0.9 % Sodium Chloride 50 ML IV (21:39)
[2023-06-29] MEDS: 0.9 % Sodium Chloride 1,000 ML 999 ML IV (21:40)
[2023-06-29] MEDS: clonazePAM 1 MG TABLET PO (21:45)
[2023-06-29] MEDS: QUEtiapine Fumarate 25 MG TABLET PO (21:45)
[2023-06-29] MEDS: ondansetron HCL 4 MG/2 ML VIAL IVPUSH (21:45)
--- NOTE | 2023-06-29 21:45 | PC.NURSE ---
This handbook writer assumed care of this Pt at 1900. Pt A&Ox3, calm and cooperative, sitting on stretcher watching TV. Reports effectiveness to pain med given by previous RN. Pt states feeling strong thoughts at home of jumping out the window reports feeling safe while here, denies HI/AH/VH. Pt medicated per AUG. Med rec done, Pt able to verbalize home meds.
[2023-06-29] MEDS: Ketorolac Tromethamine 15 MG/ML VIAL IVPUSH (23:13)
--- NOTE | 2023-06-29 23:28 | PC.NURSE ---
Pt reports 01/06 left sided flank pain, provider Dr. Richardson made aware, Pt medicated per AUG. RN to RN report given, Pt ambulated independently with steady gait into pod.
--- NOTE | 2023-06-29 23:50 | PC.NURSE ---
Report received from RN, Mary Ellen. PT comes from Main ED with reports of SI with a plan. PT requested medication for sleep reporting she was given 25mg Serioquel in the main ED but she takes 100mg at home. This RN spoke with provider for new orders. PT medicated as per AUG. Plan of care ongoing.
[2023-06-30] MEDS: QUEtiapine Fumarate 100 MG TABLET PO (00:19)
[2023-06-30 06:50] VITALS: BP 103/59; PULSE 71; RESP 16; TEMP 36.5; O2SAT 99
[2023-06-30] MEDS: Omeprazole 40 MG CAPSULE.DR PO (06:52)
[2023-06-30] MEDS: Buprenorphine/Naloxone 4/1 mg FILM 1 FILM SUBLINGUAL (10:05)
[2023-06-30] MEDS: cefuroxime axetiL 500 MG TABLET PO (10:06)
[2023-06-30] MEDS: Ibuprofen 600 MG TABLET PO (12:28)
== END 2023-06-30 12:44 | disposition home or self-care (01) ==
PROVIDERS: Emergency Medicine; Registered Nurse Emergency; Emergency Provider Emergency Medicine
DX: N39.0 Urinary tract infection, site not specified (principal); N13.2 Hydronephrosis with renal and ureteral calculous obstruction; R45.851 Suicidal ideations; F20.9 Schizophrenia, unspecified; Z11.52 Encounter for screening for COVID-19; Z90.49 Acquired absence of other specified parts of digestive tract
CPT/HCPCS: 36415; 74176; 80053; 80307; 81001; 81025; 84702; 85025; 85610; 87086; 87502; 87635; 96361; 96365; 96375; 96376; 99285; J0696; J1885; J2405; S9485

== ENCOUNTER 2023-08-08 12:27 | Outpatient (REF) | payer MEDICAID, SELFPAY ==
[2023-08-08 16:32] LABS: Alanine Aminotransferase 14 U/L (0-31); Albumin Level 4.5 g/dL (3.5-5.0); Alkaline Phosphatase 71 U/L (39-117); Aspartate Amino Transferase 19 U/L (5-31); Bilirubin Direct 0.2 mg/dL (0.0-0.5); Bilirubin Total 0.4 mg/dL (0.0-1.0); Total Protein 8.5 g/dL (6.5-8.0)
[2023-08-09 03:38] LABS: Syphilis Screen Nonreactive (Nonreactive)
[2023-08-09 03:53] LABS: HBS Num1 38.34 mIU/mL (0-7.99); HBc Num1 0.03 S/CO (0.00-0.79); HBsAGNum1 0.29 S/CO (0.00-0.99); HIV AB/AG Nonreactive (Nonreactive); HIV Num 1 0.07 S/CO (0.00-0.99); Hepatitis B Core Antibody Nonreactive (Nonreactive); Hepatitis B Surface Antigen Negative (Negative); ~Hepatitis B Surface Antibody REACTIVE (Nonreactive)
[2023-08-10 20:28] LABS: TS Negative Control Passed; TS Panel A 0; TS Panel B 0; TS Positive Control Passed; TSpotTB Negative (Negative)
== END 2023-08-08 12:28 | disposition home or self-care (01) ==
LOC: HO.HHCL 12:27
PROVIDERS: Visit Provider Emergency Medicine
DX: Z11.4 Encounter for screening for human immunodeficiency virus [HIV] (principal); Z11.1 Encounter for screening for respiratory tuberculosis; F11.20 Opioid dependence, uncomplicated
CPT/HCPCS: 36415; 80076; 86481; 86704; 86706; 86780; 87340; 87389

== ENCOUNTER 2023-10-18 15:28 | Emergency (ER) | payer MEDICAID, SELFPAY ==
--- NOTE | ~2023-10-18 | CT_ITS ---
EXAMINATION: CT ABDOMEN AND PELVIS WITHOUT CONTRAST CLINICAL INFORMATION: Right flank pain COMPARISON: CT abdomen and pelvis 06/29/2023 TECHNIQUE: Multidetector volumetric imaging was performed from the superior aspect of the liver through the pubic symphysis. Sagittal and coronal reformatted images were obtained on the technologist's workstation. This CT examination was performed using dose optimization techniques as appropriate, variously including the following: *Automated exposure control *Adjustment of mA and/or kV according to patient size (this includes techniques or standardized protocols for targeted exams where dose is matched to indication/reason for exam; i.e. extremities or head) *Use of iterative reconstruction technique DLP: 812 mGy-cm FINDINGS: LUNG BASES: The visualized lung bases are unremarkable. LIVER, GALLBLADDER, AND BILIARY TREE: The liver is normal in size, shape, and attenuation. No focal hepatic lesion or biliary ductal dilatation is present. The gallbladder is surgically absent. PANCREAS: Unremarkable. SPLEEN: Unremarkable. ADRENAL GLANDS: Unremarkable. KIDNEYS AND URETERS: The kidneys are normal in size. Persistent left-sided hydronephrosis and hydroureter. Multiple obstructing stones are noted in the distal left ureter. BLADDER: Unremarkable. GASTROINTESTINAL TRACT: The small and large bowel are unremarkable. The appendix is unremarkable. ABDOMINAL WALL: No significant hernia is appreciated. LYMPH NODES: Normal. VASCULAR: Unremarkable. PELVIC VISCERA: Unremarkable. OSSEOUS STRUCTURES: Sacralization of the right aspect of L5. Degenerative changes of L4-L5 similar to prior. CT/CT abdomen pelvis wo IV con IMPRESSION: 1. Persistent left-sided hydronephrosis and hydroureter with multiple obstructing stones again noted in the distal left ureter. 2. 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 Fleischner guidelines were followed.
[2023-10-18 15:35] VITALS: BP 106/75; PULSE 106; RESP 18; TEMP 36.8; O2SAT 99; BMI 33.8
--- NOTE | 2023-10-18 15:35 | ED_ITS ---
HPI - Abdominal Pain General Chief Complaint: Nausea/Vomiting/Diarrhea Stated Complaint: Vomiting Time Seen by Provider: 10/18/23 16:06 Source: patient Mode of arrival: ambulatory Limitations: no limitations History of Present Illness HPI narrative: 43-year-old female history of overactive bladder and urinary urgency presents with multiple complaints. Patient reports 4 days ago she passed a large kidney stone she brings it in with her to show me, experiencing right-sided flank pain dark foul-smelling urine ever since, she is concerned she may have more stones. She has history of this in the past. Also reporting fatigue, malaise, myalgias, right-sided headache abdominal discomfort and just overall feeling unwell. She reports that she is also having diarrhea which started yesterday. Patient denies cough, blood in stool or vomit, chest pain, shortness of breath, vision changes, dizziness, weakness. Patient is under a significant amount of stress at home, reports recent loss of loved 1 ( her son) 10 months ago, reports worsening depression however no suicidal or homicidal ideation. Related Data Home Medications ?Medication ?Instructions ?Recorded ?Confirmed amitriptyline 10 mg tablet 10 mg PO BEDTIME 05/02/21 buprenorphine 4 mg-naloxone 1 mg 5 mg sublingual BID 05/02/21 sublingual film (Suboxone) clonazepam 1 mg tablet 1 mg PO TID PRN anxiety 05/02/21 06/29/23 duloxetine 20 mg capsule,delayed 20 mg PO DAILY 05/02/21 release ondansetron 4 mg disintegrating 4 mg PO Q12H PRN nausea 05/02/21 tablet quetiapine 25 mg tablet 25 mg PO BEDTIME 05/02/21 06/29/23 buprenorphine 4 mg-naloxone 1 mg 1 film sublingual Q12H 06/29/23 06/29/23 sublingual film (Suboxone) quetiapine 100 mg tablet (Seroquel) 100 mg PO BEDTIME 06/29/23 06/29/23 Previous Rx's ?Medication ?Instructions ?Recorded oxybutynin chloride 10 mg 10 mg PO DAILY OAB 30 days #90 tabs 10/01/21 tablet,extended release 24 hr dicyclomine 20 mg tablet 20 mg PO QID #20 tabs 01/01/23 omeprazole 40 mg capsule,delayed 40 mg PO DAILY #20 caps 07/05/23 release cefuroxime axetil 500 mg tablet 500 mg PO BID 7 days #14 tabs 06/29/23 ketorolac 10 mg tablet 10 mg PO Q8H PRN pain #14 tabs 06/29/23 ondansetron 4 mg disintegrating 4 mg PO Q6-8H PRN nausea and 06/29/23 tablet vomiting #5 tabs prednisone 20 mg tablet 20 mg PO DAILY #3 tabs 06/29/23 tamsulosin 0.4 mg capsule (Flomax) 0.4 mg PO DAILY #7 caps 06/29/23 cefuroxime axetil 500 mg tablet 500 mg PO BID #10 tabs 06/30/23 ibuprofen 600 mg tablet 600 mg PO QID PRN pain #14 tabs 06/30/23 tamsulosin 0.4 mg capsule 0.4 mg PO BEDTIME #7 caps 06/30/23 ibuprofen 600 mg tablet 600 mg PO Q6H PRN pain #30 tabs 10/18/23 morphine 15 mg immediate release 15 mg PO Q8H PRN pain #6 tabs 10/18/23 tablet prednisone 20 mg tablet 20 mg PO DAILY #3 tabs 10/18/23 tamsulosin 0.4 mg capsule (Flomax) 0.4 mg PO DAILY #14 caps 10/18/23 Allergies Allergy/AdvReac Type Severity Reaction Status Date / Time aspirin [ASPIRIN] Allergy Unknown SWELLING, Verified 10/18/23 16:46 hives Review of Systems Review of Systems Yes all other systems are reviewed and are negative PMFSH Past Medical History Attestation statement: The following information was validated with the patient. Source: old records reviewed and nursing notes reviewed Medical History Overactive bladder Narcotic abuse History of kidney stones Gastritis Headache, migraine Insomnia Anxiety Oropharyngeal dysphagia Gallstone Drug abuse and dependence Constipation Epigastric pain Continuous severe abdominal pain Thalamic pain syndrome (hyperesthetic) Surgical History History of surgery Social History Social History Alcohol intake: former Patient Tobacco Use Status: Current everyday Tobacco user Smoked in Last 30 Days: No Use of substances other than those prescribed or required for medical reasons: No Substance Use Type: Marijuana Advance Directives: No Advance Directives Information Provided: No Physical Exam ED Vital Signs: Vital Signs - 24 hr 10/18/23 15:35 10/18/23 17:53 10/18/23 17:55 Temperature 98.3 F 98.3 F Pulse Rate 106 H 60 Respiratory Rate 18 18 18 Blood Pressure 106/75 106/68 Pulse Oximetry 99 100 Oxygen Delivery Method Room Air Room Air BMI result Body Mass Index 33.8 vss slightly tachycardic however patient anxious appearing Appearance: Alert.? Oriented X3.? No acute distress.? Anxious appearing Head: Normocephalic, atraumatic, no step-offs or deformities Eyes: Pupils equal, round and reactive to light.? ENT: Pharynx normal.? Neck: Normal inspection.? Neck supple.? CVS: Normal heart rate and rhythm.? Pulses normal.? Respiratory: No respiratory distress.? Breath sounds normal.? Abdomen: Soft and diffuse discomfort.? Skin: Skin warm and dry.? Normal skin color.? Normal skin turgor.? Extremities: No lower extremity edema.? No calf ttp. 5/5 strength to bilateral upper and lower extremities Back: No midline tenderness, no C-spine tenderness, full range of motion, mild discomfort to the right flank region. Neuro: Oriented X 3.? No motor deficit.? No sensory deficit. CN 2-12 intact Course Course Course Narrative: This is a rapid medical exam. Deferred additional HPI, ROS, PE to primary provider. 43 yo female with history of schizophrenia, depression here with nausea/vomiting/diarrhea/headache/body aches since yesterday. Will obtain labs, UA, viral testing Offered zoan but declined. VSS Reevaluation(s) Reevaluation #1: CBC no acute findings requiring intervention. Chemistry unremarkable. Influenza, RSV and COVID negative. Troponin pending, EKG pending. UA and CT abdomen pelvis pending Time: 16:56 Reevaluation #2: CT abdomen showing persistent left-sided hydronephrosis and hydroureter with multiple obstructing stones again noted in the distal left ureter. Patient does have diffuse abdominal discomfort. Degenerative changes noted in the lower back. I did discuss this case with urology who states they should be re- contacted after patient gives us a urine she has not been able to. She is receiving 2 L normal saline. Will do a bladder scan and if patient does not urinate she should be straight cath Time: 18:50 Reevaluation #3: Patient able to pee she states. UA pending. Sign out to Nilda Jha NP . Likely admission Time: 18:53 Additional Reevaluation(s): 2044-urine shows no signs of infection. Pain is improved and patient is tolerating p.o.. I discussed the patient with Dr. Browning from Urology. Plan for discharge home with outpatient follow-up. Patient is on Suboxone. We discussed managing pain with NSAIDs versus opiates. Patient feels that NSAIDs would not be appropriate to manage her pain. She will hold her Suboxone while on the morphine immediate release. Reviewed worrisome signs and symptoms of when to return to the emergency room. Comfortable plan for discharge home. Medical Decision Making Medical Decision Making [facility] Narrative: 43-year-old female presents with multiple complaints 4 days ago passed a kidney stone no having urinary symptoms and right flank pain also having fatigue, malaise, myalgias, nausea, vomiting, diarrhea all of which started yesterday. Denies sick contacts. Also reporting anxiety, depression worsening life stressors. Not suicidal or homicidal Physical exam with discomfort with palpation of right flank and diffuse abdominal discomfort. Vital signs with slight tachycardia initially however on my exam she was not tachycardic. I attribute the tachycardia initially to anxiety. History and physical exam concerning for UTI versus cystitis versus pyelonephritis versus kidney stone versus obstructing uropathy. Will rule out viral illness. Unlikely PE, pneumonia, ACS, acute abdomen, diverticulitis, pancreatitis, obstruction, appendicitis, cholecystitis, cholangitis. No signs of systemic illness. Anxiety and depression likely secondary to life stressors again no suicidal or homicidal ideation. Plan at this time will obtain labs, imaging, urine. Differential Diagnosis Differential Diagnoses: The differential diagnosis associated with the presentation includes History and physical exam concerning for UTI versus cystitis versus pyelonephritis versus kidney stone versus obstructing uropathy. Will rule out viral illness. Unlikely PE, pneumonia, ACS, acute abdomen, diverticulitis, pancreatitis, obstruction, appendicitis, cholecystitis, cholangitis. No signs of systemic illness. Anxiety and depression likely secondary to life stressors again no suicidal or homicidal ideation. Admission/Observation Consideration of admission/observation: Escalation of care including admission/observation considered possible Lab Data [facility] Lab Attestation statement: I reviewed the patient's lab results. 10/18/23 15:44 10/18/23 15:44 Labs: Lab Results 10/18/23 10/18/23 Range/Units 15:44 19:04 WBC 4.9 (4.8-10.8) X10*3/uL RBC 4.39 (4.20-5.50) X10*6/uL Hgb 13.1 (12.0-16.0) g/dl Hct 38.4 (37.0-47.0) % MCV 87.5 (80.0-98.0) fL MCH 29.8 (27.0-33.0) pg MCHC 34.1 (31.0-35.0) g/dl RDW 13.6 (11.0-16.0) % Plt Count 259 (160-400) X10*3/uL MPV 9.4 (9.4-12.3) fL Immature Gran % (Auto) 0.2 (0.0-0.4) % Neut % (Auto) 70.6 (45-73) % Lymph % (Auto) 21.2 (20-40) % [place] % (Auto) 7.8 (2-11) % Eos % (Auto) 0.2 (0-4) % Baso % (Auto) 0.0 (0-2) % Lymph # (Auto) 1.0 L (1.2-4.9) X10*3/uL [place] # (Auto) 0.4 (0.1-1.2) X10*3/uL Eos # (Auto) 0.0 (0.0-0.4) X10*3/uL Baso # (Auto) 0.0 (0.0-0.2) X10*3/uL Abs Immat Gran (auto) 0.01 (0.00-0.03) X10*3/uL Absolute Neuts (auto) 3.5 (2.0-8.3) x10*3/uL Absolute Nucleated RBC 0.000 (0.0-0.012) X10*3/uL Nucleated RBC % (auto) 0.0 (0.0-0.2) /100WBC Sodium 139 (135-145) mmol/L Potassium 3.4 (3.3-5.1) mmol/L Chloride 107 (96-108) mmol/L Carbon Dioxide 22 (22-29) mmol/L Anion Gap 13 (12-20) BUN 14 (9-16) mg/dL Creatinine 0.72 (0.5-1.4) mg/dL Estim Creat Clear Calc 119.9 Estimated GFR > 60 Random Glucose 131 H (60-115) mg/dL Calcium 9.1 (8.4-10.2) mg/dL Total Bilirubin 0.5 (0.0-1.0) mg/dL Direct Bilirubin 0.2 (0.0-0.5) mg/dL AST 18 (5-31) U/L ALT 16 (0-31) U/L Alkaline Phosphatase 74 (39-117) U/L Troponin I High Sens < 2.7 (<3.5-17.0) ng/L Total Protein 8.1 H (6.5-8.0) g/dL Albumin 4.4 (3.5-5.0) g/dL Lipase 70 (8-78) U/L Urine Color Dark Yellow Urine Appearance Cloudy Urine pH 6.0 (5.0-9.0) Ur Specific [place] >= 1.030 H (1.005-1.025) Urine Protein 30 (1+) H (Neg-Trace) mg/dL Urine Glucose (UA) Negative (Negative) mg/dL Urine Ketones Trace (Negative) mg/dL Urine Blood Small (1+) H (Negative) Urine Nitrite Negative (Negative) Ur Leukocyte Esterase Trace H (Negative) Urine Test NEGATIVE (NEGATIVE) Influenza Type A (PCR) NEGATIVE (Negative) Influenza Type B (PCR) NEGATIVE (Negative) RSV RNA Qual (PCR) NEGATIVE (Negative) SARS-CoV-2 RNA (RT-PCR) NEGATIVE (Negative) Independent Interpretation I performed an independent interpretation of an: CT Scan (CT/CT abdomen pelvis wo IV con IMPRESSION: 1. Persistent left-sided hydronephrosis and hydroureter with multiple obstructing stones again noted in the distal left ureter. 2. 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 Fleischner guidelines were f) Radiology Impression Discussion of test interpretation with radiology: I have reviewed the radiologist's reading. Medications Administered Discontinued Medications Generic Name Dose Route Start Last Admin Trade Name Freq PRN Reason Stop Dose Admin Acetaminophen 975 mg 10/18/23 16:33 10/18/23 16:47 Acetaminophen 325 Mg Tablet PO 10/18/23 16:34 975 mg ONCE ONE Administration Diphenhydramine HCl 25 mg 10/18/23 16:33 10/18/23 16:46 Diphenhydramine Hcl 25 Mg Capsule PO 10/18/23 16:34 25 mg ONCE ONE Administration Sodium Chloride 1,000 mls @ 999 mls/hr 10/18/23 17:30 10/18/23 19:00 Ns IV 10/18/23 18:30 Infused .Q1H1M ARUN Infusion Sodium Chloride 1,000 mls @ 999 mls/hr 10/18/23 17:30 10/18/23 18:50 Ns IV 10/18/23 18:30 Infused .Q1H1M ARUN Infusion Metoclopramide HCl 10 mg 10/18/23 16:33 10/18/23 16:46 Metoclopramide Hcl 10 Mg Tablet PO 10/18/23 16:34 10 mg ONCE ONE Administration Morphine Sulfate 4 mg 10/18/23 17:28 10/18/23 17:55 Morphine Sulfate 4 Mg/Ml Cartridge IVPUSH 10/18/23 17:29 4 mg ONCE ONE Administration Protocol Morphine Sulfate 15 mg 10/18/23 20:01 10/18/23 20:20 Morphine Sulfate Immed Release 15 Mg Tablet PO 10/18/23 20:02 15 mg ONCE ONE Administration Ondansetron HCl 4 mg 10/18/23 15:40 10/18/23 15:44 Ondansetron Odt 4 Mg Tab.Rapdis TRANSLINGU 10/18/23 15:41 Not Given ONCE ONE Prednisone 20 mg 10/18/23 18:52 10/18/23 19:24 Prednisone 20 Mg Tablet PO 10/18/23 18:53 20 mg ONCE ONE Administration Tamsulosin HCl 0.4 mg 10/18/23 18:52 10/18/23 19:24 Tamsulosin Hcl 0.4 Mg Capsule PO 10/18/23 18:53 0.4 mg ONCE ONE Administration Critical Care Time Critical Care Time Critical Care Time: Yes Total Critical Care Time: 35 Attestation: I attest to this time spent taking care of the patient, obtaining history, physical, reviewing labs, imaging, speaking to my attending, specialist or hospitalist. Discharge Plan Discharge Clinical Impression: Headache, Kidney calculi, Hydroureter, Hydronephrosis Patient Disposition: Home, Self-Care Instructions: Kidney Stones (ED) Additional Instructions: Increase fluids, rest Follow-up with urology outpatient Return for fever, vomiting, intractable pain Prescriptions: New prednisone 20 mg tablet 20 mg PO DAILY Qty: 3 0RF tamsulosin [Flomax] 0.4 mg capsule 0.4 mg PO DAILY Qty: 14 0RF ibuprofen 600 mg tablet 600 mg PO Q6H PRN (Reason: pain) Qty: 30 0RF morphine 15 mg tablet 15 mg PO Q8H PRN (Reason: pain) Qty: 6 0RF Rx Instructions: Partial Fill upon patient request. No Action oxybutynin chloride 10 mg tablet extended release 24hr 10 mg PO DAILY 30 Days Qty: 90 1RF buprenorphine-naloxone [Suboxone] 4-1 mg film 1 film sublingual Q12H cefuroxime axetil 500 mg tablet 500 mg PO BID 7 Days Qty: 14 0RF prednisone 20 mg tablet 20 mg PO DAILY Qty: 3 0RF tamsulosin [Flomax] 0.4 mg capsule 0.4 mg PO DAILY Qty: 7 0RF ondansetron 4 mg tablet,disintegrating 4 mg PO Q6-8H PRN (Reason: nausea and vomiting) Qty: 5 0RF ketorolac 10 mg tablet 10 mg PO Q8H PRN (Reason: pain) Qty: 14 0RF quetiapine [Seroquel] 100 mg tablet 100 mg PO BEDTIME ibuprofen 600 mg tablet 600 mg PO QID PRN (Reason: pain) Qty: 14 0RF cefuroxime axetil 500 mg tablet 500 mg PO BID Qty: 10 0RF tamsulosin 0.4 mg capsule 0.4 mg PO BEDTIME Qty: 7 0RF dicyclomine 20 mg tablet 20 mg PO QID Qty: 20 0RF Rx Instructions: 30 min before meals, 30 min before bed omeprazole 40 mg capsule,delayed release(DR/EC) 40 mg PO DAILY Qty: 20 0RF clonazepam 1 mg tablet 1 mg PO TID PRN (Reason: anxiety ) quetiapine 25 mg tablet 25 mg PO BEDTIME Referrals: Santa Celaya MD [Physician] - 1 week Print Language: [place]
[2023-10-18 15:50] LABS: MANUAL DIFF FLAG NO
[2023-10-18 15:54] LABS: Eosinophils Percent Auto 0.2 % (0-4); Hematocrit 38.4 % (37.0-47.0); Hemoglobin 13.1 g/dl (12.0-16.0); Imm Gran Abs Auto 0.01 X10*3/uL (0.00-0.03); Imm Gran Pct Auto 0.2 % (0.0-0.4); Lymphocytes Percent Auto 21.2 % (20-40); Mean Corpuscular HGB Conc 34.1 g/dl (31.0-35.0); Mean Corpuscular Hemoglobin 29.8 pg (27.0-33.0); Mean Corpuscular Volume 87.5 fL (80.0-98.0); Mean Platelet Volume 9.4 fL (9.4-12.3); Monocytes Absolute Auto 0.4 X10*3/uL (0.1-1.2); Monocytes Percent Auto 7.8 % (2-11); Neutrophils Absolute Auto 3.5 x10*3/uL (2.0-8.3); Neutrophils Percent Auto 70.6 % (45-73); Platelet Count 259 X10*3/uL (160-400); Red Blood Count 4.39 X10*6/uL (4.20-5.50); Red Cell Distribution Width 13.6 % (11.0-16.0); White Blood Count 4.9 X10*3/uL (4.8-10.8)
[2023-10-18 16:14] LABS: Alanine Aminotransferase 16 U/L (0-31); Albumin Level 4.4 g/dL (3.5-5.0); Alkaline Phosphatase 74 U/L (39-117); Anion Gap 13 (12-20); Aspartate Amino Transferase 18 U/L (5-31); Bilirubin Direct 0.2 mg/dL (0.0-0.5); Bilirubin Total 0.5 mg/dL (0.0-1.0); Blood Urea Nitrogen 14 mg/dL (9-16); Calcium 9.1 mg/dL (8.4-10.2); Carbon Dioxide 22 mmol/L (22-29); Chloride 107 mmol/L (96-108); Creatinine Clr Calc Pharmacy 119.9; Estimated Glomerular Filt Rate > 60; Glucose Random 131 mg/dL (60-115); Lipase 70 U/L (8-78); Potassium 3.4 mmol/L (3.3-5.1); Sodium 139 mmol/L (135-145); Total Protein 8.1 g/dL (6.5-8.0)
[2023-10-18 16:41] LABS: Influenza A PCR NEGATIVE (Negative); Influenza B PCR NEGATIVE (Negative); Resp Syncy Virus RNA Qual PCR NEGATIVE (Negative); SARS COV2 PCR INHOUSE NEGATIVE (Negative)
[2023-10-18] MEDS: diphenhydrAMINE HCL 25 MG CAPSULE PO (16:46)
[2023-10-18] MEDS: Metoclopramide HCl 10 MG TABLET PO (16:46)
[2023-10-18] MEDS: Acetaminophen 325 MG TABLET 975 MG PO (16:47)
--- NOTE | 2023-10-18 16:56 | ECG_ITS ---
Test Reason : CHEST PAIN Blood Pressure : / mmHG Vent. Rate : 080 BPM Atrial Rate : 080 BPM P-R Int : 162 ms QRS Dur : 080 ms QT Int : 356 ms P-R-T Axes : 063 047 027 degrees QTc Int : 410 ms Normal sinus rhythm with sinus arrhythmia Possible Left atrial enlargement Borderline ECG When compared with ECG of 01-JAN-2023 15:27, Nonspecific T wave abnormality now evident in Inferior leads Referred By: Mando Mckeon Electronically Signed By:PAMELA KELLY
[2023-10-18 17:13] LABS: Troponin-I High Sensitivity < 2.7 ng/L (<3.5-17.0)
[2023-10-18] MEDS: 0.9 % Sodium Chloride 1,000 ML 999 ML IV ×2 (17:47)
[2023-10-18 17:53] VITALS: BP 106/68; PULSE 60; RESP 18; TEMP 36.8; O2SAT 100
[2023-10-18 17:55] VITALS: RESP 18
[2023-10-18] MEDS: Morphine Sulfate 4 MG/ML CARTRIDGE IVPUSH (17:55)
--- NOTE | 2023-10-18 18:46 | PC.NURSE ---
attempted multiple times to get urine- pt states unable. savanna hargrove aware.
--- NOTE | 2023-10-18 19:00 | PC.NURSE ---
per BRADEN Whitehead no need for bladder scan as pt voided moderate amount in toilet, concentrated yellow urine
[2023-10-18 19:12] LABS: Appearance Urine Cloudy; Color Urine Dark Yellow; Glucose Urine UA Negative (Negative); Leukocyte Esterase Urine Trace (Negative); Nitrite Urine Negative (Negative); Specific Gravity - Urine >= 1.030 (1.005-1.025); UMIC TRIGGER UACC YES; Urine Blood Small (1+) (Negative); Urine Ketones Trace mg/dL (Negative); Urine Protein 30 (1+) mg/dL (Neg-Trace)
[2023-10-18 19:13] LABS: UPreg QC Valid YES; Urine Pregnancy NEGATIVE (NEGATIVE)
[2023-10-18] MEDS: predniSONE 20 MG TABLET PO (19:24)
[2023-10-18] MEDS: Tamsulosin HCL 0.4 MG CAPSULE PO (19:24)
[2023-10-18] MEDS: Morphine Sulfate Immed Release 15 MG TABLET PO (20:20)
--- NOTE | 2023-10-18 20:58 | PC.NURSE ---
savanna cunningham state a new ecg is not needed as prior one was completed
[2023-10-18 20:59] VITALS: BP 103/73; PULSE 97; RESP 18; O2SAT 98
[2023-10-18 21:07] LABS: Bacteria Urine None Seen (None Seen); Hyaline Casts Urine 0-2 /LPF (0-2); RBC Urine >20 /HPF (0-2); WBC Urine 0-5 /HPF (0-5)
[2023-10-18 21:08] VITALS: BP 120/70; PULSE 97; RESP 18; TEMP 36.8; O2SAT 98
== END 2023-10-18 21:08 | disposition home or self-care (01) ==
PROVIDERS: Nurse Practitioner Family; Physician Assistant; Emergency Provider Emergency Medicine; PCP Internal Medicine
DX: N13.2 Hydronephrosis with renal and ureteral calculous obstruction (principal); R51.9 Headache, unspecified; Z11.52 Encounter for screening for COVID-19; Z20.828 Contact with and (suspected) exposure to other viral communicable diseases; F11.20 Opioid dependence, uncomplicated; Z79.899 Other long term (current) drug therapy
CPT/HCPCS: 0241U; 74176; 80048; 80076; 81001; 81025; 83690; 84484; 85025; 93005; 96361; 96374; 96376; 99285; J2270

== ENCOUNTER → 2023-10-18 16:56 | Outpatient (BNV) | payer MEDICAID, SELFPAY | PROVIDERS: Emergency Provider Emergency Medicine; PCP Internal Medicine; Visit Provider Internal Medicine | DX: R07.9 Chest pain, unspecified (principal) | CPT/HCPCS: 93010 ==

== ENCOUNTER 2023-11-07 14:37 | Outpatient (AMB) | payer MEDICAID, SELFPAY ==
--- NOTE | 2023-11-07 14:42 | MHC.OFFVIS ---
Intake Visit Reasons: nephrolithiasis Intake Note: New patient is present for Nephrolithiasis. 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 She is a patient of . She is seen for the following urologic conditions - nephrolithiasis Nephrolithiasis Previous gastric bypass Seen in emergency room beginning of August and then in [place] emergency room later in the month Left flank pain with pelvic pressure CT scan performed - Persistent left-sided hydronephrosis and hydroureter with multiple obstructing stones again noted in the distal left ureter. Recommend left-sided semi rigid ureteroscopy Questions answered [facility] Medical History Overactive bladder Narcotic abuse History of kidney stones Gastritis Headache, migraine Insomnia Anxiety Oropharyngeal dysphagia Gallstone Drug abuse and dependence Constipation Epigastric pain Continuous severe abdominal pain Thalamic pain syndrome (hyperesthetic) Surgical History History of surgery Social History Alcohol intake: former Patient Tobacco Use Status: Current everyday Tobacco user Substance Use Type: Marijuana Review of Systems Const Denies chills and Denies fever(s) Card Reports no additional complaints and Denies syncope Resp Denies cough GI Denies abdominal pain and Denies heartburn Reports as per HPI and Denies change in libido Neuro Denies syncope Psych Denies change in libido Endo Denies change in libido Physical Exam Const General: cooperative, healthy appearing, comfortable and no acute distress Orientation/consciousness: patient oriented x3 HEENT Face and sinus: Yes normal facial exam Mouth: moist mucous membranes Neck Neck: Yes normal visual inspection, Yes full ROM and Yes trachea midline Chest Chest palpation & inspection: normal inspection of the chest Resp Effort & Inspection: normal respiratory effort, able to speak in complete sentences and no respiratory distress GI Inspection: Yes normal to inspection Back/Spine/Pelvis Cervical Spine: normal cervical lordosis Thoracic/Lumbar Spine: thoracic and lumbar spine normal to inspection Skin General skin exam: no rashes or lesions noted Neuro General: patient oriented x3, gait normal, tone normal and moves all extremities Extrem General: Yes normal to inspection and Yes capillary refill normal Assessment & Plan Assessment & Plan (1) Kidney calculi: Code(s): N20.0 - Calculus of kidney Category: Medical (2) Hydronephrosis: Code(s): N13.30 - Unspecified hydronephrosis Category: Medical (3) Hydroureter: Code(s): N13.4 - Hydroureter Category: Medical Plan Ureteroscopy We discussed the nature of the decision and reasonable alternatives for performing ureteroscopy. Options such as medical therapy were discussed. Interventions include chemical dissolution, ESWL, ureteroscopy with laser lithotripsy and stent placement, PCNL. The relative uncertainties and benefits related to each alternate procedure were adequately discussed. General surgical risks including, but not limited to - pain, bleeding, infection, myocardial infarction, pulmonary embolus, deep vein thrombosis and cerebrovascular accident which may result in further hospitalization were discussed. Full disclosure of the procedure as well as all major risks, benefits and complications were discussed including but not limited to damage to the urethra, bladder and kidney infection, damage to the ureter, stent migration or malposition, scarring to the renal pelvis, remnant stone fragments, subsequent stone passage with need for secondary procedures. The overall secondary procedure rate is approximately 10-15%. The overall clearance rate is approximately 90-95%. Success of the procedure in the short-term does not necessarily guarantee that long-term success will be maintained. Suitable follow up will need to be maintained. The patient showed understanding of discussion and wishes to proceed with - cystoscopy, retrograde, ureteroscopy, possible lithotripsy/stone basketing and stent on the left side - rigid ureteroscopy Patient Instructions: Imaging studies, laboratory and physical exam results were discussed and reviewed in detail. No major barriers to patient understanding were identified. An opportunity to ask questions regarding the treatment plan was provided. All questions were answered. The patient expressed understanding and agreement with the above treatment plan. The patient is aware they should contact our office by phone for worsening of their current condition or the appearance of new urologic symptoms. Compliance is encouraged with any medications and followup testing that is ordered. It is a privilege to participate in the urologic care of your patient. If you have any questions or concerns regarding treatment for the above conditions, or other urologic issues, please do not hesitate to contact me. The office telephone contact is [phone]. This note is constructed using voice recognition software. While every effort has been made to ensure accuracy superintendent distribution errors may have been included. Yours sincerely, Dr Remington Webster MD, [facility] - Urology Providers of Expert, Compassionate Care for the Genitourinary System Coding Level of Care Code New Pt Level 4 (05342) Diagnoses Kidney calculi N20.0 Hydronephrosis N13.30 Hydroureter N13.4
== END 2023-11-07 15:13 | disposition home or self-care (01) ==
PROVIDERS: PCP Internal Medicine; Visit Provider Urology
DX: N20.0 Calculus of kidney (principal); N13.30 Unspecified hydronephrosis; N13.4 Hydroureter
CPT/HCPCS: 99204

== ENCOUNTER → 2023-11-07 14:37 | Outpatient (BNVA) | payer MEDICAID, SELFPAY | PROVIDERS: PCP Internal Medicine; Visit Provider Urology | DX: N13.2 Hydronephrosis with renal and ureteral calculous obstruction (principal) | CPT/HCPCS: 99202 ==

== ENCOUNTER 2023-11-11 12:00 | Day surgery (SDC) | payer MEDICAID, SELFPAY ==
--- NOTE | ~2023-11-11 | FL_ITS ---
EXAMINATION: XR FLUOROSCOPY WITH IMAGES CLINICAL INFORMATION: Left renal stone. COMPARISON: CT abdomen and pelvis 10/18/2023. TECHNIQUE: Fluoroscopy Supervised By: Dr. Santa Celaya. Fluoroscopy Time: 18.2 seconds. Cumulative Dose: 5.84 mGy. Images: 4. FINDINGS: Intraoperative fluoroscopy and spot films were performed during a procedure in the OR. A cystoscope is present with contrast injected into the left ureter with eventual placement of left internally dwelling double-J ureteral stent. Please see Dr. Santa Celaya's report for complete details. FL/FL guidance in OR IMPRESSION: Intraoperative fluoroscopy and spot films were obtained. Please see Dr. Santa Celaya's report for complete details.
[2023-11-11 14:11] VITALS: BMI 33.2
[2023-11-11 14:13] VITALS: BP 126/84; PULSE 84; RESP 18; TEMP 36.6; O2SAT 99
--- NOTE | 2023-11-11 14:39 | HO.ANESPROP2 ---
HPI - Anesthesia Eval Consult details Narrative: for cysto, retro, stone PMFSH Active Problems Active Problems: All Active Problems Urinary urgency (Acute) Overactive bladder (Acute) Past Medical History Medical History Overactive bladder Narcotic abuse History of kidney stones Gastritis Headache, migraine Insomnia Anxiety Oropharyngeal dysphagia Gallstone Drug abuse and dependence Constipation Epigastric pain Continuous severe abdominal pain Thalamic pain syndrome (hyperesthetic) Patient : No Family History Family history of problems with anesthesia: No Surgical History Surgical History (Updated 11/11/23 @ 14:03 by Maria Del Rosario Ames RN) S/P cholecystectomy History of surgery History of Problems with Anesthesia: No Social History Social History Alcohol intake: former Patient Tobacco Use Status: Current everyday Tobacco user Use of substances other than those prescribed or required for medical reasons: Yes Substance Use Type: Marijuana Substance Use Frequency: Daily Are you DNR?: No Advance Directives: No Advance Directives Information Provided: Yes Meds Allergies Allergy/AdvReac Type Severity Reaction Status Date / Time aspirin [ASPIRIN] Allergy Unknown SWELLING, Verified 11/11/23 14:02 hives Home Medications ?Medication ?Instructions ?Recorded ?Confirmed ?Last Taken ?Type buprenorphine 4 mg-naloxone 1 mg 5 mg sublingual BID 05/02/21 Unknown History sublingual film (Suboxone) clonazepam 1 mg tablet 1 mg PO TID PRN anxiety 05/02/21 06/29/23 Unknown History quetiapine 25 mg tablet 25 mg PO BEDTIME 05/02/21 06/29/23 Unknown History buprenorphine 4 mg-naloxone 1 mg 1 film sublingual Q12H 06/29/23 06/29/23 Unknown History sublingual film (Suboxone) quetiapine 100 mg tablet (Seroquel) 100 mg PO BEDTIME 06/29/23 06/29/23 Unknown History Exam Height,Weight and Vital Signs: Height 5 ft 7 in Weight 96.162 kg Last Vital Signs Temp 97.9 F 11/11/23 14:13 Pulse 84 11/11/23 14:13 Resp 18 11/11/23 14:13 BP 126/84 11/11/23 14:13 Pulse Ox 99 11/11/23 14:13 O2 Del Method Room Air 11/11/23 14:13 Airway Mallampati Class: II TM Dist: >3cm Neck ROM: Full Partial: Upper Loose/Missing/Broken Teeth: Yes and Upper Heart: ok Lungs: ok Assessment and Plan Assessment Anesthesia Assessment: Anesthesia Plan Discussed and Chart Reviewed Final Anesthetic Review Family History of Problems with Anesthesia: No History of Problems with Anesthesia: No NPO: Yes ASA Class: III Final Preanesthetic Review: No Changes in Pt Med Stat, Meds/Allgs Chart Reviewed, Consent Obtained/Reviewed and Anes Risks/Benef Reviewed Patient Risk: Intermediate Procedure Risk: Low Anesthetic Plan Anesthetic Plan: GA and Agree w/ Assess. and Plan Disposition: Standard PACU
--- NOTE | 2023-11-11 16:53 | P.OP_ITS ---
Operative Note Operative Note Date of Service: 11/11/23 Narrative: PreOperative Diagnosis:?? Left ureteral stone left hydronephrosis Post Operative Diagnosis:?? Left ureteral stone left hydronephrosis Procedure: - Urethral dilation, Cystoscopy, left retrograde, left ureteroscopy laser lithotripsy stent insertion, 6 [place] by 26 cm Surgeon:?Dr Santa Celaya Anesthesia:? General Indications for procedure: Obstructive uropathy due to distal left ureteral stone Procedure: After informed consent was verified the patient was brought to the operating placed on the OR table in supine position.? General Anesthesia was administered per protocol.? The patient was placed in lithotomy position, prepped and draped in the usual sterile fashion.? Safety pause time-out and side of surgery confirmed.? Antibiotics confirmed. 2% lidocaine jelly 10 mL was passed transurethrally. Attempts to pass the 22 [place] cyst met with resistance. The urethral meatus was dilated using the Silvestre urethral sounds starting with 16 [place]er sound and sequentially dilated up to 22 [place] sound. A 22 [place] cystoscope was inserted transurethrally with the obturator. The bladder was visualized.? Both ureteric orifices were in normal position. An open-ended ureteral catheter was passed into the left ureteral orifice and a retrograde examination was performed. There was a filling defect in the ureter and dilatation of the proximal ureter and renal pelvis and calices. A guidewire was passed through the ureteral catheter into the kidney. The balloon dilator size 12 fr by 4 cm was passed over the guide -wire the balloon was inflated to 10 mmHg and the intramural ureter was dilated for 40 seconds. The balloon was deflated and removed. After removing the balloon dilator a 2nd guidewire was then passed into the kidney to use as a safety. The cystoscope was removed, leaving both guidewires in place. One guidewire was used as the safety and was attached to the draping. The semi rigid ureteroscope was passed over one of the guidewires to the level of the stone in the ureter. One guidewire was then removed. Laser lithotripsy of the stone was done using the 360 fiber with alternating dusting and pulsating settings. There was good fragmentation of the stone. The 0 degree basket was passed through the ureteroscope, fragments removed to send for analysis. The ureteroscope was removed. The cystoscope was passed over the safety guidewire. A? 6 [place] by 26 cm stent was placed into the ureter and renal pelvis under a combination of fluoroscopy and direct visualization. The bladder was emptied.? The rigid cystoscope was removed. ? The patient tolerated the procedure well and was brought to the recovery room in stable condition. Complications: None Drains: Ureteral stent as dictated above
[2023-11-11 16:56] VITALS: BP 102/61; PULSE 84; RESP 16; TEMP 36.4; O2SAT 99
[2023-11-11 17:01] VITALS: BP 106/71; PULSE 80; RESP 16; O2SAT 99
[2023-11-11 17:06] VITALS: BP 97/71; PULSE 78; RESP 18; O2SAT 100
[2023-11-11 17:11] VITALS: BP 112/59; PULSE 68; RESP 18; O2SAT 100
[2023-11-11] MEDS: Phenazopyridine HCL 200 MG TABLET PO (17:12)
[2023-11-11 17:26] VITALS: BP 121/66; PULSE 70; RESP 18; TEMP 36.6; O2SAT 100
[2023-11-11] MEDS: hydrOXYzine HCL 25 MG TABLET PO (17:56)
[2023-12-03 22:18] LABS: Stone Source LEFT URETERAL STONE
== END 2023-11-11 18:00 | disposition home or self-care (01) ==
PROVIDERS: PCP Internal Medicine; Visit Provider Urology
PROC: (CPT 52356; principal; 2023-11-11 15:10)
DX: N13.2 Hydronephrosis with renal and ureteral calculous obstruction (principal); N13.9 Obstructive and reflux uropathy, unspecified
CPT/HCPCS: 52356; 52344; 82365; 88300; C1726; C1758; C1769; C2617; J0690; J1885; J2405; J2704; J3010; Q9967

== ENCOUNTER → 2023-11-11 12:00 | Outpatient (BNV) | payer MEDICAID, SELFPAY | PROVIDERS: PCP Internal Medicine; Visit Provider Urology | DX: N20.0 Calculus of kidney (principal) | CPT/HCPCS: 52356; 74420 ==

== ENCOUNTER 2023-11-18 17:49 | Emergency (ER) | payer MEDICAID, SELFPAY ==
--- NOTE | ~2023-11-18 | CT_ITS ---
EXAMINATION: CT ABDOMEN AND PELVIS WITHOUT CONTRAST CLINICAL INFORMATION: Left flank pain. COMPARISON: 10/18/2023. TECHNIQUE: Multidetector volumetric imaging was performed from the superior aspect of the liver through the pubic symphysis. Sagittal and coronal reformatted images were obtained on the technologist's workstation. This CT examination was performed using dose optimization techniques as appropriate, variously including the following: *Automated exposure control *Adjustment of mA and/or kV according to patient size (this includes techniques or standardized protocols for targeted exams where dose is matched to indication/reason for exam; i.e. extremities or head) *Use of iterative reconstruction technique DLP: 867 mGy-cm FINDINGS: LUNG BASES: The visualized lung bases are unremarkable. LIVER, GALLBLADDER, AND BILIARY TREE: The liver is normal in size, shape, and attenuation. No focal hepatic lesion or biliary ductal dilatation is present. There has been a prior cholecystectomy. PANCREAS: Unremarkable. SPLEEN: Unremarkable. ADRENAL GLANDS: Unremarkable. KIDNEYS AND URETERS: The kidneys are normal in size, shape, and attenuation. No hydronephrosis, hydroureter, or calculi seen. No perinephric stranding. There is a stable 1.5 cm right renal midpole cyst. BLADDER: There is a stent seen coiled in the region of the distal left ureter extending to the urinary bladder and through the urethra. GASTROINTESTINAL TRACT: The small and large bowel are unremarkable. The appendix is unremarkable. ABDOMINAL WALL: No significant hernia is appreciated. LYMPH NODES: Normal. VASCULAR: Unremarkable. PELVIC VISCERA: Unremarkable. OSSEOUS STRUCTURES: There is moderate L4-L5 disc degenerative change. CT/CT abdomen pelvis wo IV con IMPRESSION: There is a stent seen coiled in the region of the distal left ureter extending to the urinary bladder and through the urethra. There is no urinary calculus or obstructive uropathy seen. No other significant abnormality seen. Fleischner guidelines were followed.
--- NOTE | 2023-11-18 18:19 | ED_ITS ---
HPI - General Adult General Chief complaint: Urogenital-Female Stated complaint: stone surgery complications Time Seen by Provider: 11/19/23 02:00 Source: patient Mode of arrival: ambulatory Limitations: no limitations History of Present Illness HPI narrative: Patient is status post ureteric stent placement left ureter on 11/11/23 started noticed pain in the suprapubic area with stent coming out Related Data Home Medications ?Medication ?Instructions ?Recorded ?Confirmed buprenorphine 4 mg-naloxone 1 mg 5 mg sublingual BID 05/02/21 sublingual film (Suboxone) clonazepam 1 mg tablet 1 mg PO TID PRN anxiety 05/02/21 06/29/23 quetiapine 25 mg tablet 25 mg PO BEDTIME 05/02/21 06/29/23 buprenorphine 4 mg-naloxone 1 mg 1 film sublingual Q12H 06/29/23 06/29/23 sublingual film (Suboxone) quetiapine 100 mg tablet (Seroquel) 100 mg PO BEDTIME 06/29/23 06/29/23 Previous Rx's ?Medication ?Instructions ?Recorded omeprazole 40 mg capsule,delayed 40 mg PO DAILY #20 caps 01/01/23 release ibuprofen 600 mg tablet 600 mg PO QID PRN pain #14 tabs 06/30/23 ibuprofen 600 mg tablet 600 mg PO Q6H PRN pain #30 tabs 10/18/23 oxybutynin chloride 10 mg 10 mg PO BEDTIME #14 tabs 11/11/23 tablet,extended release 24 hr oxycodone-acetaminophen 5 mg-325 1 tab PO .Q.6 hours to Q 8 ifeanyi PRN 11/11/23 mg tablet (Percocet) pain #10 tabs phenazopyridine 200 mg tablet 200 mg PO Q8H PRN Burning or pain 11/11/23 (Pyridium) with urination #30 tabs Allergies Allergy/AdvReac Type Severity Reaction Status Date / Time aspirin [ASPIRIN] Allergy Unknown SWELLING, Verified 11/18/23 18:29 hives Review of Systems 2 Review of Systems: Yes all other systems are reviewed and are negative PMFSH Past Medical History Medical History Overactive bladder Narcotic abuse History of kidney stones Gastritis Headache, migraine Insomnia Anxiety Oropharyngeal dysphagia Gallstone Drug abuse and dependence Constipation Epigastric pain Continuous severe abdominal pain Thalamic pain syndrome (hyperesthetic) Surgical History S/P cholecystectomy History of surgery Social History Social History Alcohol intake: former Patient Tobacco Use Status: Current everyday Tobacco user Substance Use Type: Marijuana Advance Directives: No Advance Directives Information Provided: Yes Physical Exam ED Vital Signs: Vital Signs - 24 hr 11/18/23 18:20 11/19/23 02:35 Temperature 98.6 F 97.6 F Pulse Rate 103 H 98 Respiratory Rate 16 16 Blood Pressure 134/84 109/72 Pulse Oximetry 98 97 Oxygen Delivery Method Room Air Room Air BMI result Body Mass Index 25.1 Appearance: Alert. Oriented X3. No acute distress. CVS: Normal heart rate and rhythm. Pulses normal. Respiratory: No respiratory distress. Equal air entry bilateral, no wheezing/rales/rhonchi Abdomen: Soft and nontender. Bowel sounds are present, no mass palpable, no CVA tenderness : Stent was seen coming out of the urethra Skin: Skin warm and dry. Normal skin color. Normal skin turgor. Extremities: No lower extremity edema. No calf tenderness Neuro: Oriented X 3. Course Course Course Narrative: This is a Rapid Medical Examination (RME) performed by Christine Hernandez PA-C in triage. Full HPI, ROS, assessment and treatment plan per primary provider in the Main ED. 43 yo female hx of overactive bladder, nephrolithiasis, obstructive uropathy, anxiety here for eval of dysuria and lower abdominal pressure x1 day. endorses increased urinary frequency. she is s/p laser lithotripsy with stent placed on 11/11/[address] Chuy berrios. admits she is supposed to have the stent removed on the of this month (). denies fever, chills, hematuria, abd pain, flank pain. well appearing. no cvat b/l. Plan: labs, UA Medications Administered Discontinued Medications Generic Name Dose Route Start Last Admin Trade Name Freq PRN Reason Stop Dose Admin Sodium Chloride 1,000 mls @ 999 mls/hr 11/19/23 02:02 11/19/23 02:54 Ns IV 11/19/23 03:02 999 mls/hr .Q1H1M ONE Administration Medical Decision Making Medical Decision Making [facility] Narrative: Patient is status post left ureteric stent placement on 11/10 which was coming out of the urethra which was pulled out intact patient felt much better after removing the stent patient advised to follow with urology Lab Data 11/18/23 18:51 11/18/23 18:51 Labs: Lab Results 11/18/23 Range/Units 18:51 WBC 6.9 (4.8-10.8) X10*3/uL RBC 4.35 (4.20-5.50) X10*6/uL Hgb 13.1 (12.0-16.0) g/dl Hct 39.2 (37.0-47.0) % MCV 90.1 (80.0-98.0) fL MCH 30.1 (27.0-33.0) pg MCHC 33.4 (31.0-35.0) g/dl RDW 13.9 (11.0-16.0) % Plt Count 311 (160-400) X10*3/uL MPV 9.2 L (9.4-12.3) fL Immature Gran % (Auto) 0.3 (0.0-0.4) % Neut % (Auto) 48.4 (45-73) % Lymph % (Auto) 43.4 H (20-40) % [place] % (Auto) 6.0 (2-11) % Eos % (Auto) 1.3 (0-4) % Baso % (Auto) 0.6 (0-2) % Lymph # (Auto) 3.0 (1.2-4.9) X10*3/uL [place] # (Auto) 0.4 (0.1-1.2) X10*3/uL Eos # (Auto) 0.1 (0.0-0.4) X10*3/uL Baso # (Auto) 0.0 (0.0-0.2) X10*3/uL Abs Immat Gran (auto) 0.02 (0.00-0.03) X10*3/uL Absolute Neuts (auto) 3.3 (2.0-8.3) x10*3/uL Absolute Nucleated RBC 0.000 (0.0-0.012) X10*3/uL Nucleated RBC % (auto) 0.0 (0.0-0.2) /100WBC Sodium 139 (135-145) mmol/L Potassium 4.9 D (3.3-5.1) mmol/L Chloride 107 (96-108) mmol/L Carbon Dioxide 22 (22-29) mmol/L Anion Gap 15 (12-20) BUN 11 (9-16) mg/dL Creatinine 0.76 (0.5-1.4) mg/dL Estim Creat Clear Calc 91.8 Estimated GFR > 60 Random Glucose 103 (60-115) mg/dL Calcium 10.3 H D (8.4-10.2) mg/dL Magnesium 2.1 (1.6-2.6) mg/dL Total Bilirubin 0.2 (0.0-1.0) mg/dL AST 28 (5-31) U/L ALT 23 (0-31) U/L Alkaline Phosphatase 88 (39-117) U/L Total Protein 8.7 H (6.5-8.0) g/dL Albumin 4.7 (3.5-5.0) g/dL Lipase 190 H (8-78) U/L Discharge Plan Discharge Clinical Impression: Encounter for removal of ureteral stent Patient Disposition: Home, Self-Care Instructions: Ureteral Stent Placement (DC) Additional Instructions: Drink plenty of fluids Your ureteric stent has been removed Follow with urologist Prescriptions: No Action buprenorphine-naloxone [Suboxone] 4-1 mg film 1 film sublingual Q12H quetiapine [Seroquel] 100 mg tablet 100 mg PO BEDTIME ibuprofen 600 mg tablet 600 mg PO QID PRN (Reason: pain) Qty: 14 0RF oxybutynin chloride 10 mg tablet extended release 24hr 10 mg PO BEDTIME Qty: 14 0RF phenazopyridine [Pyridium] 200 mg tablet 200 mg PO Q8H PRN (Reason: Burning or pain with urination) Qty: 30 0RF oxycodone-acetaminophen [Percocet] 5-325 mg tablet 1 tab PO .Q.6 hours to Q 8 ifeanyi PRN (Reason: pain) Qty: 10 0RF Rx Instructions: Partial Fill upon patient request. omeprazole 40 mg capsule,delayed release(DR/EC) 40 mg PO DAILY Qty: 20 0RF ibuprofen 600 mg tablet 600 mg PO Q6H PRN (Reason: pain) Qty: 30 0RF buprenorphine-naloxone [Suboxone] 4-1 mg film 5 mg sublingual BID clonazepam 1 mg tablet 1 mg PO TID PRN (Reason: anxiety ) quetiapine 25 mg tablet 25 mg PO BEDTIME Print Language: Polish
[2023-11-18 18:20] VITALS: BP 134/84; PULSE 103; RESP 16; TEMP 37; O2SAT 98; BMI 25.1
[2023-11-18 18:57] LABS: MANUAL DIFF FLAG NO
[2023-11-18 19:05] LABS: Basophils Percent Auto 0.6 % (0-2); Eosinophils Absolute Auto 0.1 X10*3/uL (0.0-0.4); Eosinophils Percent Auto 1.3 % (0-4); Hematocrit 39.2 % (37.0-47.0); Hemoglobin 13.1 g/dl (12.0-16.0); Imm Gran Abs Auto 0.02 X10*3/uL (0.00-0.03); Imm Gran Pct Auto 0.3 % (0.0-0.4); Lymphocytes Percent Auto 43.4 % (20-40); Mean Corpuscular HGB Conc 33.4 g/dl (31.0-35.0); Mean Corpuscular Hemoglobin 30.1 pg (27.0-33.0); Mean Corpuscular Volume 90.1 fL (80.0-98.0); Mean Platelet Volume 9.2 fL (9.4-12.3); Monocytes Absolute Auto 0.4 X10*3/uL (0.1-1.2); Neutrophils Absolute Auto 3.3 x10*3/uL (2.0-8.3); Neutrophils Percent Auto 48.4 % (45-73); Platelet Count 311 X10*3/uL (160-400); Red Blood Count 4.35 X10*6/uL (4.20-5.50); Red Cell Distribution Width 13.9 % (11.0-16.0); White Blood Count 6.9 X10*3/uL (4.8-10.8)
[2023-11-18 19:30] LABS: Alanine Aminotransferase 23 U/L (0-31); Albumin Level 4.7 g/dL (3.5-5.0); Alkaline Phosphatase 88 U/L (39-117); Anion Gap 15 (12-20); Aspartate Amino Transferase 28 U/L (5-31); Bilirubin Total 0.2 mg/dL (0.0-1.0); Blood Urea Nitrogen 11 mg/dL (9-16); Calcium 10.3 mg/dL (8.4-10.2); Carbon Dioxide 22 mmol/L (22-29); Chloride 107 mmol/L (96-108); Creatinine Clr Calc Pharmacy 91.8; Estimated Glomerular Filt Rate > 60; Glucose Random 103 mg/dL (60-115); Lipase 190 U/L (8-78); Magnesium 2.1 mg/dL (1.6-2.6); Potassium 4.9 mmol/L (3.3-5.1); Sodium 139 mmol/L (135-145); Total Protein 8.7 g/dL (6.5-8.0)
[2023-11-19 02:35] VITALS: BP 109/72; PULSE 98; RESP 16; TEMP 36.4; O2SAT 97
[2023-11-19] MEDS: 0.9 % Sodium Chloride 1,000 ML 999 ML IV (02:54)
--- NOTE | 2023-11-19 03:55 | PC.NURSE ---
This Rn was not primary nurse, Iv removed, reviewed discharge instructions with pt. pt verbalized understanding. no sign of distress.
[2023-11-19 04:02] VITALS: BP 109/72; PULSE 98; RESP 16; TEMP 36.4; O2SAT 97
== END 2023-11-19 04:05 | disposition home or self-care (01) ==
PROVIDERS: Physician Assistant Medical; Emergency Provider Internal Medicine; PCP Internal Medicine
DX: R10.30 Lower abdominal pain, unspecified (principal); Z48.03 Encounter for change or removal of drains; Z96.0 Presence of urogenital implants; Z46.6 Encounter for fitting and adjustment of urinary device
CPT/HCPCS: 36415; 74176; 80053; 83690; 83735; 85025; 96360; 99284

== ENCOUNTER 2024-01-02 21:23 | Emergency (ER) | payer MEDICAID, SELFPAY ==
[2024-01-02 21:38] VITALS: BP 129/74; BP 158/112; PULSE 116; PULSE 94; RESP 17; TEMP 37.1; O2SAT 96; O2SAT 98; BMI 34.5
[2024-01-02 21:43] VITALS: BP 129/74; PULSE 94; RESP 17; TEMP 37.1; O2SAT 98
[2024-01-02 23:11] VITALS: BP 115/76; PULSE 72; RESP 17; TEMP 36.4; O2SAT 98
--- NOTE | 2024-01-02 23:13 | ED_ITS ---
HPI - Eye Problem General Chief complaint: Eye Problems Stated complaint: L EYE IRRITATION AND SWELLING PER EMS Time Seen by Provider: 01/02/24 22:35 Source: patient, EMS, old records reviewed and interpreter for the deaf Mode of arrival: EMS Limitations: no limitations History of Present Illness ED Provider: Ravi Barrera PA-C HPI Narrative: 43-year-old Kiswahili-speaking female presents to the ER for evaluation of left eye pain after she was unable to get her contacts out of the eye last night. Patient reports significantly worsening eye irritation, pain and inability to open her eye since last night. She states the eye is red, she feels like there is scratching and itching in the eye with burning pain. Denies any discharge or drainage. She states she can not open the eye due to pain. MD chief complaint: eye pain, eye redness and foreign body Onset (ago): day(s) (1) Onset description: sudden Duration: progressively worsening Location: left eye Eye Symptoms: burning, redness, pain, foreign body sensation and photophobia Place: home Mechanism: other (possible retained contact lens) Severity: severe Severity scale (1-10): >10 If Pain, Quality: sharp, burning, aching and stabbing Context: contact lens use Associated symptoms: headache Treatments Prior to Arrival: irrigated eye Related Data Patient tetanus UTD: Yes Home Medications ?Medication ?Instructions ?Recorded ?Confirmed buprenorphine 4 mg-naloxone 1 mg 5 mg sublingual BID 05/02/21 sublingual film (Suboxone) clonazepam 1 mg tablet 1 mg PO TID PRN anxiety 05/02/21 06/29/23 quetiapine 25 mg tablet 25 mg PO BEDTIME 05/02/21 06/29/23 buprenorphine 4 mg-naloxone 1 mg 1 film sublingual Q12H 06/29/23 06/29/23 sublingual film (Suboxone) quetiapine 100 mg tablet (Seroquel) 100 mg PO BEDTIME 06/29/23 06/29/23 Previous Rx's ?Medication ?Instructions ?Recorded omeprazole 40 mg capsule,delayed 40 mg PO DAILY #20 caps 01/01/23 release ibuprofen 600 mg tablet 600 mg PO QID PRN pain #14 tabs 06/30/23 ibuprofen 600 mg tablet 600 mg PO Q6H PRN pain #30 tabs 10/18/23 oxybutynin chloride 10 mg 10 mg PO BEDTIME #14 tabs 11/11/23 tablet,extended release 24 hr oxycodone-acetaminophen 5 mg-325 1 tab PO .Q.6 hours to Q 8 ifeanyi PRN 11/11/23 mg tablet (Percocet) pain #10 tabs phenazopyridine 200 mg tablet 200 mg PO Q8H PRN Burning or pain 11/11/23 (Pyridium) with urination #30 tabs erythromycin 5 mg/gram (0.5 %) eye 0.5 inch ophthalmic (eye) BID 7 01/02/24 ointment days #3.5 grams Allergies Allergy/AdvReac Type Severity Reaction Status Date / Time aspirin [ASPIRIN] Allergy Unknown SWELLING, Verified 01/02/24 21:39 hives Review of Systems Review of Systems: Yes all other systems are reviewed and are negative [facility] Past Medical History Medical History Overactive bladder Narcotic abuse History of kidney stones Gastritis Headache, migraine Insomnia Anxiety Oropharyngeal dysphagia Gallstone Drug abuse and dependence Constipation Epigastric pain Continuous severe abdominal pain Thalamic pain syndrome (hyperesthetic) Surgical History S/P cholecystectomy History of surgery Social History Social History Alcohol intake: former Patient Tobacco Use Status: Current everyday Tobacco user Substance Use Type: Marijuana Advance Directives: No Advance Directives Information Provided: No Physical Exam Vital Signs: Vital Signs: Last Vital Signs Temp 97.5 F 01/02/24 23:11 Pulse 72 01/02/24 23:11 Resp 17 01/02/24 23:11 BP 115/76 01/02/24 23:11 Pulse Ox 98 01/02/24 23:11 O2 Del Method Room Air 01/02/24 23:11 BMI result Body Mass Index 34.5 Appearance: Alert. Oriented X3. No acute distress. Head: normocephalic, atraumatic. Eyes: Left upper eyelid with mild generalized swelling, no erythema. Other periorbital structures are within normal limits. Left conjunctiva and sclerae with diffuse injection. Fluorescein exam consistent with a large corneal abrasion over the pupil. Pupils equal, round and reactive to light. Extraocular movements are intact no nystagmus. ENT: Pharynx normal. No tonsillar swelling or exudate. Neck: Normal inspection. Respiratory: No respiratory distress. Skin: Skin warm and dry. Normal skin color. Normal skin turgor. No rashes. Extremities: No lower extremity edema. No joint swelling. Neuro/psych: Oriented X 3. grossly normal, nonfocal Medications Administered Discontinued Medications Generic Name Dose Route Start Last Admin Trade Name Chely PRN Reason Stop Dose Admin Acetaminophen 975 mg 01/02/24 22:59 01/02/24 23:16 Acetaminophen 325 Mg Tablet PO 01/02/24 23:00 975 mg ONCE ONE Administration Fluorescein Sodium 1 strip 01/02/24 22:38 01/02/24 23:16 Fluorescein Sodium Strip EYE-LEFT 01/02/24 22:39 1 strip ONCE ONE Administration Tetracaine HCl 1 drop 01/02/24 22:38 01/02/24 23:16 Tetracaine Hcl/Pf 0.5% Oph Chhaya 4 Ml Drops EYE-LEFT 01/02/24 22:39 1 drop ONCE ONE Administration Medical Decision Making Medical Decision Making MDM Narrative: 43-year-old female presents the ER for evaluation of left eye pain and possible retained contact lens. She was wearing the contact lens for color not for prescription needs. On examination today there was no visible retained contact lens. She had a large corneal abrasion on exam. She was counseled using staff counsel - will start erythromycin ointment and have her follow-up with ophthalmology next week to ensure resolution. Return precautions were discussed. Stable for discharge home. Differential Diagnosis Differential Diagnoses: The differential diagnosis associated with the presentation includes Retained contact lens in the eye, corneal abrasion, preseptal cellulitis, periorbital cellulitis, keratitis, iritis, chemosis Independent Historian Clinical information obtained from an independent historian. History obtained from or confirmed by: EMS External Record Review External record reviewed: Prior outpatient labs Prescription Management I considered prescription management with: Pain Medication and Antibiotic Critical Care Time Critical Care Time Critical Care Time: No Discharge Plan Discharge Clinical Impression: Corneal abrasion Patient Disposition: Home, Self-Care Instructions: Corneal Abrasion (DC) Additional Instructions: You have a large abrasion on your eye. Do not were contacts. Use the prescribed antibiotic ointment 2 times a day for 1 week. Use cool compresses to the eye several times per day as needed for pain and swelling. Take Motrin Tylenol as needed for pain and swelling. Recommend following up with the development disability specialist next week. Call Friday for an appointment If you develop new or worsening symptoms call 911 or come back to the ER for further evaluation. Prescriptions: New erythromycin 5 mg/gram (0.5 %) ointment 0.5 inch ophthalmic (eye) BID 7 Days Qty: 3.5 0RF No Action buprenorphine-naloxone [Suboxone] 4-1 mg film 1 film sublingual Q12H quetiapine [Seroquel] 100 mg tablet 100 mg PO BEDTIME ibuprofen 600 mg tablet 600 mg PO QID PRN (Reason: pain) Qty: 14 0RF oxybutynin chloride 10 mg tablet extended release 24hr 10 mg PO BEDTIME Qty: 14 0RF phenazopyridine [Pyridium] 200 mg tablet 200 mg PO Q8H PRN (Reason: Burning or pain with urination) Qty: 30 0RF oxycodone-acetaminophen [Percocet] 5-325 mg tablet 1 tab PO .Q.6 hours to Q 8 ifeanyi PRN (Reason: pain) Qty: 10 0RF Rx Instructions: Partial Fill upon patient request. omeprazole 40 mg capsule,delayed release(DR/EC) 40 mg PO DAILY Qty: 20 0RF ibuprofen 600 mg tablet 600 mg PO Q6H PRN (Reason: pain) Qty: 30 0RF buprenorphine-naloxone [Suboxone] 4-1 mg film 5 mg sublingual BID clonazepam 1 mg tablet 1 mg PO TID PRN (Reason: anxiety ) quetiapine 25 mg tablet 25 mg PO BEDTIME Referrals: Jitendra Holley [Physician] - Print Language: Kiswahili
[2024-01-02] MEDS: Fluorescein Sodium STRIP 1 STRIP EYE-LEFT (23:16)
[2024-01-02] MEDS: Tetracaine HCl/PF 0.5% Oph Sol 4 ML DROPS 1 DROP EYE-LEFT (23:16)
[2024-01-02] MEDS: Acetaminophen 325 MG TABLET 975 MG PO (23:16)
[2024-01-03 00:14] VITALS: BP 107/69; PULSE 84; RESP 18; TEMP 36.5; O2SAT 98
[2024-01-03] MEDS: Erythromycin Base 0.5% Oph Oin 1 GM TUBE 1 CM EYE-LEFT (00:33)
[2024-01-03] MEDS: oxyCODONE HCl Immed Release 5 MG TABLET PO (01:28)
[2024-01-03 01:32] VITALS: BP 110/80; PULSE 84; RESP 18; TEMP 36.5; O2SAT 98
== END 2024-01-03 01:39 | disposition home or self-care (01) ==
PROVIDERS: Emergency Provider Emergency Medicine
DX: H18.822 Corneal disorder due to contact lens, left eye (principal); H57.12 Ocular pain, left eye
CPT/HCPCS: 99283; 99284

== ENCOUNTER 2025-04-21 14:08 | Outpatient (REF) | payer MEDICAID, SELFPAY ==
[2025-04-21 16:05] LABS: MANUAL DIFF FLAG NO
[2025-04-21 16:15] LABS: Hematocrit 36.2 % (37.0-47.0); Hemoglobin 12.2 g/dl (12.0-16.0); Imm Gran Abs Auto 0.02 X10*3/uL (0.00-0.03); Imm Gran Pct Auto 0.4 % (0.0-0.4); Lymphocytes Absolute Auto 2.8 X10*3/uL (1.2-4.9); Mean Corpuscular HGB Conc 33.7 g/dl (31.0-35.0); Mean Corpuscular Hemoglobin 29.8 pg (27.0-33.0); Mean Corpuscular Volume 88.3 fL (80.0-98.0); NRBC Abs Auto 0.000 X10*3/uL (0.0-0.012); NRBC Pct Auto 0.0 /100WBC (0.0-0.2); Platelet Count 260 X10*3/uL (160-400); Red Blood Count 4.10 X10*6/uL (4.20-5.50); White Blood Count 5.4 X10*3/uL (4.8-10.8)
[2025-04-21 16:52] LABS: Alanine Aminotransferase 16 U/L (0-31); Albumin Level 4.5 g/dL (3.5-5.0); Alkaline Phosphatase 79 U/L (39-117); Anion Gap 11 (12-20); Aspartate Amino Transferase 33 U/L (5-31); Blood Urea Nitrogen 7 mg/dL (9-16); Calcium 9.0 mg/dL (8.4-10.2); Carbon Dioxide 27 mmol/L (22-29); Chloride 107 mmol/L (96-108); Cholesterol 139 mg/dL (<200); Estimated Glomerular Filt Rate > 60; HDL Cholesterol 40 mg/dL (>40); Potassium 4.2 mmol/L (3.3-5.1); Sodium 141 mmol/L (135-145); Total Protein 7.7 g/dL (6.5-8.0); Triglycerides 178 mg/dL (<150)
[2025-04-22 04:07] LABS: Syphilis Screen Nonreactive (Nonreactive)
[2025-04-22 04:36] LABS: HIV Num 1 0.08 S/CO (0.00-0.99); ~HepC Num1 0.12 S/CO (0.00-0.79); ~Hepatitis C Antibody Nonreactive (Nonreactive)
[2025-04-22 04:41] LABS: ~Hepatitis A Antibody IgG 0.53 S/CO (0.00-0.99)
[2025-04-24 04:19] LABS: TS Negative Control Passed; TS Panel A 0; TS Panel B 0; TS Positive Control Passed; TSpotTB Negative (Negative)
[2025-04-29 13:49] LABS: Anti Nuclear Antibody Screen NEGATIVE (NEGATIVE)
== END 2025-04-21 14:09 | disposition home or self-care (01) ==
LOC: HO.HHCL 14:08
PROVIDERS: Emergency Medicine; PCP Internal Medicine; Visit Provider Internal Medicine
DX: Z01.84 Encounter for antibody response examination (principal); Z11.1 Encounter for screening for respiratory tuberculosis; Z11.4 Encounter for screening for human immunodeficiency virus [HIV]; Z11.59 Encounter for screening for other viral diseases; Z11.3 Encounter for screening for infections with a predominantly sexual mode of transmission; F31.62 Bipolar disorder, current episode mixed, moderate; F11.20 Opioid dependence, uncomplicated; E66.811 Obesity, class 1; M25.50 Pain in unspecified joint; Z68.32 Body mass index [BMI] 32.0-32.9, adult
CPT/HCPCS: 36415; 80053; 80061; 82248; 82306; 83036; 84443; 85025; 85652; 86038; 86140; 86200; 86481; 86708; 86780; 86803; 87389

== ENCOUNTER 2025-06-17 13:29 | Outpatient (AMB) | payer MEDICAID, SELFPAY ==
--- NOTE | 2025-06-17 13:43 | MHC.OFFVIS ---
Intake Visit Reasons: kidney stone/OAB/PVR(SET) Intake Note: Reason for Visit: Kidney Stone/OAB Follow Up Urology Meds: Oxybutynin, Blood Thinners: None Labs: None Imaging: None Last PVR: None Architectural Engineer Required: Yes Architectural Engineer Language: Restaurant Supervisor Services: Architectural Engineer Present Allergies aspirin (ASPIRIN) Allergy (Unknown, Verified 06/17/25 13:55) SWELLING, hives HPI Comments Details: Rufina is a pleasant female. She is a patient of . She is seen for the following urologic conditions - nephrolithiasis Micronesian translation provided by qualified medical insurance claims specialist Reporting pain On examination has musculoskeletal pain right greater than left Reassurance provided Will arrange imaging for stone Nephrolithiasis Previous gastric bypass Seen in emergency room beginning of August and then in [facility] room later in the month Left flank pain with pelvic pressure CT scan performed - 11/20 Persistent left-sided hydronephrosis and hydroureter with multiple obstructing stones again noted in the distal left ureter. Intervention - 11/20 left ureteroscopy Stone composition - 11/20 mixed calcium oxalate PFSH Medical History Overactive bladder Narcotic abuse History of kidney stones Gastritis Headache, migraine Insomnia Anxiety Oropharyngeal dysphagia Gallstone Drug abuse and dependence Constipation Epigastric pain Continuous severe abdominal pain Thalamic pain syndrome (hyperesthetic) Surgical History S/P cholecystectomy History of surgery Social History Alcohol intake: never Patient Tobacco Use Status: Current everyday Tobacco user Substance Use Type: Marijuana Review of Systems Const Denies chills and Denies fever(s) Card Reports no additional complaints and Denies syncope Resp Denies cough GI Denies abdominal pain and Denies heartburn Reports as per HPI and Denies change in libido Neuro Denies syncope Psych Denies change in libido Endo Denies change in libido Physical Exam Const General: cooperative, healthy appearing, comfortable and no acute distress Orientation/consciousness: patient oriented x3 HEENT Face and sinus: Yes normal facial exam Mouth: moist mucous membranes Neck Neck: Yes normal visual inspection, Yes full ROM and Yes trachea midline Chest Chest palpation & inspection: normal inspection of the chest Resp Effort & Inspection: normal respiratory effort, able to speak in complete sentences and no respiratory distress GI Inspection: Yes normal to inspection Back/Spine/Pelvis Cervical Spine: normal cervical lordosis Thoracic/Lumbar Spine: thoracic and lumbar spine normal to inspection Skin General skin exam: no rashes or lesions noted Neuro General: patient oriented x3, gait normal, tone normal and moves all extremities Extrem General: Yes normal to inspection and Yes capillary refill normal Assessment & Plan Assessment & Plan (1) Kidney calculi: Code(s): N20.0 - Calculus of kidney Category: Medical Plan Stone imaging Orders: Orders XR KUB Today N20.0 - Calculus of kidney US renal BI Today N20.0 - Calculus of kidney Medications: Discontinued oxybutynin chloride ER Discontinued Reason: Patient Completed Course 10 mg PO BEDTIME 14 tabs 0RF Patient Instructions: This note is constructed using voice recognition software. While every effort has been made to ensure accuracy park aide errors may have been included. Imaging studies, laboratory and physical exam results were discussed and reviewed in detail. No major barriers to patient understanding were identified. An opportunity to ask questions regarding the treatment plan was provided. All questions were answered. The patient expressed understanding and agreement with the above treatment plan. The patient is aware they should contact our office by phone for worsening of their current condition or the appearance of new urologic symptoms. Compliance is encouraged with any medications and followup testing that is ordered. It is a privilege to participate in the urologic care of your patient. If you have any questions or concerns regarding treatment for the above conditions, or other urologic issues, please do not hesitate to contact me. The office telephone contact is [phone]. Sincerely, Dr Remington Webster MD, [facility] - Urology Compassionate Specialist Care for the Genitourinary System Coding Level of Care Code Est Pt Level 4 (94692) Diagnoses Kidney calculi N20.0
--- OUTSIDE RECORDS SUMMARY | 2025-06-17 15:10 | XMS_ITS | Encounter Summary ---
Author Organization [employer] Address [address] [place] [address] 7t [place] [address] Care Team Providers Care Machine Sander Name Role Phone Latrice Tay MD Primary Care Provide r Inez Wilson RN Unavailable [phone] Renée Aguirre Unavailable Reason for Visit * Reason Comments Med Refill Encounter Details Date Type Department Care Team (Late st Contact Info) Description 12/06/[address] [facility] CHC MED & PEDS [address] [place] [address] Latrice Tay MD [address] [place] [address] Nausea and vomiting, unspecified vomiting type Social History Tobacco Use Types Packs/Day Years Used Date Smoking Tobacco: Every Day Cigarettes 0.3 0.5 Passive Smoke Exposure: Never Smokeless Tobacco: Never Alcohol Use Standard Drinks/Week Comments Never 0 (1 standard drink = 0.6 oz pur e alcohol) Alcohol Answer Date Recorded Frequency of Alcohol Consumption Not on file 02/11/2024 Average Number of Drinks Not on file 024 Frequency of Binge Drinking Not on file 01/28 Score 0 02/11/2024 Depression Answer Date Recorded Patient Health Questionnaire-9 Score 22 02/11/2024 Patient Health Questionnaire-9 Score 22 02/11/2024 Last PHQ-9: Questionnaire Data Not on file 0 02/11/2024 Depression Answer Date Recorded Patient Health Questionnaire-2 Score 6 02/11/2024 Comments Unknown Sex and Gender Information Value Date Recorded Sex Assigned at Female 04/29/2022 10:22 AM EDT Legal Sex Female 10:22 AM EDT Gender Identity Female 04/29/2022 10:22 AM EDT Sexual Orientation Choose not to disclose 2021 10:22 AM EDT documented as of this encounter Plan of Treatment Upcoming Encounters Date Type Department Care Team (Late st Contact Info) Description 08/02/2025 2:00 PM EST Nutrition [facility] DIABETES/NUTRITION [address] [place] [address] [place] [address] documented as of this encounter Visit Diagnoses Diagnosis Nausea and vomiting, unspecified vomiting type documented in this encounter Additional Health Concerns Assessment Noted Time PHQ-9 Depression Total Score: 22 024 3:48 PM EDT documented as of this encounter Care Teams Machine Sander Relationship Specialty Start Date End Date Latrice Tay MD [address] [place] [address] PCP - General Family Medicine 08/27/18 Inez Wilson RN [address] [place], [place] [phone] Registered Nurse Family Medicine 04/26/25 Renée Aguirre 04/26/25 documented as of this encounter
--- OUTSIDE RECORDS SUMMARY | 2025-06-17 15:10 | XMS_ITS | Encounter Summary ---
Author Organization [employer] Address [address] [place] [address] 7 [place] [address] Care Team Providers Care Strategic Client Executive Name Role Phone Latrice Tay MD Primary Care Provide r Inez Wilson RN Unavailable [phone] Renée Aguirre Unavailable Encounter Details Date Type Department Care Team (Latest Contact Info) Description 03/05/2022 Abstract [facility] CONVERSIONS Dental, Provider, DDS Social History Tobacco Use Types Packs/Day Years Used Date Smoking Tobacco: Never Assessed Comments Unknown Sex and Gender Information Value [...] Info) Description 08/02/2025 2:00 PM EST Nutrition [facility] DIABETES/NUTRITION [address] [place] [address] [place] [address] documented as of this encounter Visit Diagnoses Not on filedocumented in this encounter Care Teams Strategic Client Executive Relationship Specialty Start Date End Date Latrice Tay MD [address] [place], [place] [phone] PCP - General Family Medicine 08/27/18 Inez Wilson RN [address] [place] [address] Registered Nurse Family Medicine 04/26/25 Renée Aguirre 04/26/25 documented as of this encounter
--- OUTSIDE RECORDS SUMMARY | 2025-06-17 15:10 | XMS_ITS | Encounter Summary ---
Author Organization [employer] Address [address] [place] [address] 7t [place] [address] Care Team Providers Care Water Control Supervisor Name Role Phone Latrice Tay MD Primary Care Provide r Inez Wilson RN Unavailable Renée Aguirre Unavailable Reason for Visit * Reason Comments Med Refill Encounter Details Date Type Department Care Team (Late Contact Info) Description 10/02/2023 Refill [facility] CHC MED & PEDS [address] [place] [address] Latrice Tay MD [address] [place], [place] [phone] Nausea and vomiting, unspecified vomiting type Social History Tobacco Use Types Packs/Day Years Used Date Smoking Tobacco: Every Day Cigarettes 0.3 0.5 Passive Smoke Exposure: Never Smokeless Tobacco: Never Alcohol Use Standard Drinks/Week Comments Never 0 (1 standard drink = 0.6 oz pur e alcohol) Comments Unknown Sex and Gender Information Value Date Recorded Sex Assigned at Female 04/29/2022 10:22 AM EDT Legal Sex Female 10:22 AM EDT Gender Identity Female 04/29/2022 10:22 AM EDT Sexual Orientation Choose not to disclose 2021 10:22 AM EDT documented as of this encounter Plan of Treatment Upcoming Encounters Date Type Department Care Team ([facility] Contact Info) Description 08/02/2025 2:00 PM EST Nutrition [facility] DIABETES/NUTRITION [address] [place] [address] [place] [address] documented as of this encounter Visit Diagnoses Diagnosis Nausea and vomiting, unspecified vomiting type documented in this encounter Care Teams Water Control Supervisor Relationship Specialty Start Date End Date Latrice Tay MD [address] [place], [place] [phone] PCP - General Family Medicine 08/27/18 Inez Wilson, DUSTY [address] [place] [address] Registered Nurse Family Medicine 04/26/25 Renée Aguirre 04/26/25 documented as of this encounter
--- OUTSIDE RECORDS SUMMARY | 2025-06-17 15:10 | XMS_ITS | Encounter Summary ---
Author Organization [employer] Address [address] [place] [address] 7t [place] [address] Care Team Providers Care Splitting Machine Feeder Name Role Phone Latrice Tay MD Primary Care Provide r Inez Wilson RN Unavailable [phone] Renée Aguirre Unavailable Reason for Visit * Reason Comments Med Refill Encounter Details Date Type Department Care Team ([facility] Contact Info) Description 04/29/2023 Refill [facility] MEDICINE [address] [place] [address] Karlie Frank DO [address] [place], [place] [phone] Social History Tobacco Use Types Packs/Day Years [...] Upcoming Encounters Date Type Department Care Team ([facility] Contact Info) Description 08/02/2025 2:00 PM EST Nutrition [facility] DIABETES/NUTRITION [address] [place] [address] [place] [address] documented as of this encounter Visit Diagnoses Not on filedocumented in this encounter Care Teams Splitting Machine Feeder Relationship Specialty Start Date End Date Latrice Tay MD [address] [place] [address] PCP - General Family Medicine 08/27/18 Inez Wilson RN [address] [place] [address] Registered Nurse Family Medicine 04/26/25 Renée Aguirre 04/26/25 documented as of this encounter
--- OUTSIDE RECORDS SUMMARY | 2025-06-17 15:10 | XMS_ITS | Encounter Summary ---
Author Organization [employer] Address [address] [facility] 7t [place] [address] Care Team Providers Care Evaporator Repairer Name Role Phone Latrice Tay MD Primary Care Provide r Inez Wilson RN Unavailable [phone] Renée Aguirre Unavailable Reason for Visit * Reason Comments Med Refill Encounter Details Date Type Department Care Team (Late st Contact Info) Description 06/13/[address] [facility] CHC MED & PEDS [address] [place] [address] Latrice Tay MD [address] [place] [address] Chronic nausea; Nausea and vomiting, unspecified vomiting type Social [...] Answer Date Recorded Patient Health Questionnaire-9 Score 24 06/10/2025 Patient Health Questionnaire-9 Score 24 06/10/2025 Last PHQ-9: Questionnaire Data Not on file 1 08/11/2024 Housing Stability Answer Date Recorded What is your housing situation today? I have ifeanyi carrera 02/21/[address] you li ve. Do you have problems with any of the following? None of the above 02/21/2025 Food Insecurity Answer Date Recorded Within the past 12 months, y ou worried that your food would run out before you got money to buy more: Sometimes True 2024 Within the past 12 months,th e food you bought just didn't last and you didn't have enough money to get more: Sometimes True 02/21/2025 Transportation Answer Date Recorded In the past 12 months, has l ack of transportation kept you from medical appts, meetings, work or from getting things needed for daily living? No 02/21/2025 Utilities Answer Date Recorded In the past 12 months, has t he electric, gas, oil or water company threatened to shut off services in your home? Yes 05/02/2025 Depression Answer Date Recorded Patient Health Questionnaire-2 Score 6 06/10/2025 Internet Access Answer Date Recorded Internet Access Q1 Yes 02/21/2025 Internet Access Q2 Not on file 02/21/2025 Comments Unknown Sex and Gender Information Value [...] 2:00 PM EST Nutrition [facility] DIABETES/NUTRITION [address] [place] [address] [place] [address] documented as of this encounter Visit Diagnoses Diagnosis Chronic nausea Nausea alone Nausea and vomiting, unspecified vomiting type documented in this encounter Additional Health Concerns Assessment Noted Time PHQ-9 Depression Total Score: 24 025 2:41 PM EST documented as of this encounter Care Teams Evaporator Repairer Relationship Specialty Start Date End Date Latrice Tay MD [address] [place] [address] PCP - General Family Medicine 08/27/18 Inez Wilson, DUSTY [address] [place] [address] Registered Nurse Family Medicine 04/26/25 Renée Aguirre 04/26/25 documented as of this encounter
--- OUTSIDE RECORDS SUMMARY | 2025-06-17 15:10 | XMS_ITS | Encounter Summary ---
Author Organization [employer] Address [address] [place] [address] 7t [place] [address] Care Team Providers Care Slp Name Role Phone Latrice Tay MD Primary Care Provide r Inez Wilson RN Unavailable [phone] Renée Aguirre Unavailable Reason for Visit * Reason Comments Med Refill Encounter Details Date Type Department Care Team (Late Contact Info) Description 12/15/2023 Refill [facility] CHC MED & PEDS [address] [place] [address] Latrice Tay MD [address] [place], [place] [phone] Nausea and vomiting, unspecified vomiting type Social [...] Upcoming Encounters Date Type Department Care Team ([facility] Contact Info) Description 08/02/2025 2:00 PM EST Nutrition [facility] DIABETES/NUTRITION [address] [place] [address] [place] [address] documented as of this encounter Visit Diagnoses Diagnosis Nausea and vomiting, unspecified vomiting type documented in this encounter Care Teams Slp Relationship Specialty Start Date End Date Latrice Tay MD [address] [place], [place] [phone] PCP - General Family Medicine 08/27/18 Inez Wilson, DUSTY [address] [place] [address] Registered Nurse Family Medicine 04/26/25 Renée Aguirre 04/26/25 documented as of this encounter
--- OUTSIDE RECORDS SUMMARY | 2025-06-17 15:10 | XMS_ITS | Encounter Summary ---
Author Organization [employer] Address [address] [place] [address] 7t [place] [address] Care Team Providers Care Network Technical Analyst Name Role Phone Latrice Tay MD Primary Care Provide r Inez Wilson RN Unavailable [phone] Renée Aguirre Unavailable Reason for Visit * Reason Comments Med Refill Encounter Details Date Type Department Care Team (Late Contact Info) Description 05/28/2023 Refill [facility] MEDICINE [address] [place] [address] Neo Lemus MD [address] [place] [address] Opioid dependence, uncomplicated (CMS/HCC) Social History Tobacco Use Types Packs/Day Years [...] Encounters Date Type Department Care Team (Late Contact Info) Description 08/02/2025 2:00 PM EST Nutrition [facility] DIABETES/NUTRITION [address] [place] [address] [place] [address] documented as of this encounter Visit Diagnoses Diagnosis Opioid dependence, uncomplicated (CMS/HCC) (HCC) documented in this encounter Care Teams Network Technical Analyst Relationship Specialty Start Date End Date Latrice Tay MD [address] [place], [place] [phone] PCP - General Family Medicine 08/27/18 Inez Wilson, DUSTY [address] [place] [address] [phone] Registered Nurse Family Medicine 04/26/25 Renée Aguirre 04/26/25 documented as of this encounter
--- OUTSIDE RECORDS SUMMARY | 2025-06-17 15:10 | XMS_ITS | Encounter Summary ---
Author Organization [employer] Address [address] [place] [address] 7 [place] [address] Care Team Providers Care Trout Farmer Name Role Phone Latrice Tay MD Primary Care Provide r Inez Wilson RN Unavailable [phone] Renée Aguirre Unavailable Encounter Details Date Type Department Care Team ([facility] Contact Info) Description 05/19/2023 Telephone [facility] MEDICINE [address] [place] [address] Latrice Tay MD [address] [place], [place] [phone] Social History Tobacco Use Types Packs/Day Years [...] Date Type Department Care Team ([facility] Contact Info) Description 08/02/2025 2:00 PM EST Nutrition [facility] DIABETES/NUTRITION [address] [place], [place] [phone] Rosette Cortez RD [address] [place] [address] documented as of this encounter Visit Diagnoses Not on filedocumented in this encounter Care Teams Trout Farmer Relationship Specialty Start Date End Date Latrice Tay MD [address] [place], [place] [phone] PCP - General Family Medicine 08/27/18 Inez Wilson RN [address] [place] [address] Registered Nurse Family Medicine 04/26/25 Renée Aguirre 04/26/25 documented as of this encounter
--- OUTSIDE RECORDS SUMMARY | 2025-06-17 15:10 | XMS_ITS | Encounter Summary ---
Author Organization [employer] Address [address] [place] [address] 7t [place] [address] Care Team Providers Care Biztalk Consultant Name Role Phone Latrice Tay MD Primary Care Provide r Inez Wilson RN Unavailable Renée Aguirre Unavailable Reason for Visit * Reason Comments Med Refill Encounter Details Date Type Department Care Team ([facility] st Contact Info) Description 06/24/2024 Refill [facility] MEDICINE [address] [place] [address] Neo Lemus MD [address] [place] [address] Opioid dependence, uncomplicated (CMS/HCC) Social History Tobacco [...] Info) Description 08/02/2025 2:00 PM EST Nutrition [facility] DIABETES/NUTRITION [address] [place], [place] [phone] Rosette Cortez [address] [place] [address] documented as of this encounter Visit Diagnoses Diagnosis Opioid dependence, uncomplicated (CMS/HCC) (HCC) documented in this encounter Additional Health Concerns Assessment Noted Time PHQ-9 Depression Total Score: 22 024 3:48 PM EDT documented as of this encounter Care Teams Biztalk Consultant Relationship Specialty Start Date End Date Latrice Tay MD [address] [place], [place] [phone] PCP - General Family Medicine 08/27/18 Inez Wilson RN [address] [place], [place] [phone] Registered Nurse Family Medicine 04/26/25 Renée Aguirre 04/26/25 documented as of this encounter
--- OUTSIDE RECORDS SUMMARY | 2025-06-17 15:10 | XMS_ITS ---
Author Organization [employer] Address [address] [place] [address] 7t [place] [address] Care Team Providers Care Supervisor Offset Plate Preparation Name Role Phone Latrice Tay MD Primary Care Provide r Inez Wilson RN Unavailable [phone] Renée Aguirre Unavailable [facility] Status:Enrolled (Active) Start date:04/26/2025 Enrollment date:06/16/2025 Enrollment reason:Referred by provider Overview Provider Referral- patient neds help to be remind about her appointments she has forgetfullness, she also has financial issues . Please outreach to patient. Case Team Name Relationship Phone Renée Aguirre(Responsible Staff) Continued Care and Services Coordination
--- OUTSIDE RECORDS SUMMARY | 2025-06-17 15:10 | XMS_ITS | Encounter Summary ---
Author Organization [employer] Address [address] [place] [address] 7t [place] [address] Care Team Providers Care Senior Marketing Specialist Name Role Phone Latrice Tay MD Primary Care Provide r Inez Wilson RN Unavailable [phone] Renée Aguirre Unavailable Reason for Visit * Reason Comments Med Refill Encounter Details Date Type Department Care Team (Late Contact Info) Description 01/07/2024 Refill [facility] CHC MED & PEDS [address] [place] [address] Latrice Tay MD [address] [place] [address] Nausea and vomiting, unspecified vomiting type Social [...] Upcoming Encounters Date Type Department Care Team ([facility] Contact Info) Description 08/02/2025 2:00 PM EST Nutrition [facility] DIABETES/NUTRITION [address] [place] [address] [place] [address] documented as of this encounter Visit Diagnoses Diagnosis Nausea and vomiting, unspecified vomiting type documented in this encounter Care Teams Senior Marketing Specialist Relationship Specialty Start Date End Date Latrice Tay MD [address] [place], [place] [phone] PCP - General Family Medicine 08/27/18 Inez Wilson, DUSTY [address] [place] [address] Registered Nurse Family Medicine 04/26/25 Renée Aguirre 04/26/25 documented as of this encounter
--- OUTSIDE RECORDS SUMMARY | 2025-06-17 15:10 | XMS_ITS | Encounter Summary ---
Author Organization [employer] Address [address] [place] [address] 7t [place] [address] Care Team Providers Care Grinder Machine Setter Name Role Phone Latrice Tay MD Primary Care Provide r Inez Wilson RN Unavailable [phone] Renée Aguirre Unavailable Reason for Visit * Reason Onset Date Comments Appointment 05/26/2023 Encounter Details Date Type Department Care Team ([facility] st Contact Info) Description 05/26/2023 Telephone [facility] AD[facility] D[facility]AL [address] [place] [address] Jose Hall DDS [address] [place], [place] [phone] Appointment Social History Tobacco Use Types Packs/Day Years [...] AM EDT documented as of this encounter Miscellaneous Notes * Telephone Encounter - Regina Meneses - 05/26/2023 2:00 PM EST Patient wants to rs RCT appt. With Dr. Hall. She was due to come in today 05/26 but states that her transportation never showed up DR documented in this encounter Plan of Treatment Upcoming Encounters Date Type Department Care Team (Late st Contact Info) Description 08/02/2025 2:00 PM EST Nutrition [facility] DIABETES/NUTRITION [address] [place], [place] [phone] Rosette Cortez RD [address] [place] [address] documented as of this encounter Visit Diagnoses Not on filedocumented in this encounter Care Teams Grinder Machine Setter Relationship Specialty Start Date End Date Latrice Tay MD [address] [place], [place] [phone] PCP - General Family Medicine 08/27/18 Inez Wilson RN [address] [place], [place] [phone] Registered Nurse Family Medicine 04/26/25 Renée Aguirre 04/26/25 documented as of this encounter
--- OUTSIDE RECORDS SUMMARY | 2025-06-17 15:10 | XMS_ITS | Encounter Summary ---
Author Organization [employer] Address [address] [place] [address] [address] [place] [address] Care Team Providers Care Cs Associate Name Role Phone Latrice Tay MD Primary Care Provide r Inez Wilson RN Unavailable [phone] Renée Aguirre Unavailable Encounter Details Date Type Department Care Team (Late st Contact Info) Description 07/25/2022 Abstract [facility] ADULT DENTAL [address] [place] [address] Star Gutierrez DDS [address] [place] [address] Social History Tobacco Use Types Packs/Day Years [...] not to disclose 2021 10:22 AM EDT COVID-19 Exposure Response Date Recorded In the last 10 days, have yo u been in contact with someone who was confirmed or suspected to have Coronavirus/COVID-19? No / Unsure 07/22/2022 12:56 PM EST documented as of this encounter Plan of Treatment Upcoming Encounters Date Type Department Care Team (Late Contact Info) Description 08/02/2025 2:00 PM EST Nutrition [facility] DIABETES/NUTRITION [address] [place] [address] Rosette Cortez, JANETTE [address] [place] [address] documented as of this encounter Visit Diagnoses Not on filedocumented in this encounter Care Teams Cs Associate Relationship Specialty Start Date End Date Latrice Tay MD [address] [place], [place] [phone] PCP - General Family Medicine 08/27/18 Inez Wilson RN [address] [place] [address] Registered Nurse Family Medicine 04/26/25 Renée Aguirre 04/26/25 documented as of this encounter
--- OUTSIDE RECORDS SUMMARY | 2025-06-17 15:10 | XMS_ITS ---
Author Organization [employer] Address [address] [place] [address] [address] [place] [address] Care Team Providers Care All Source Intelligence Technician Name Role Phone Latrice Tay MD Primary Care Provide r nIez Wilson RN Unavailable [phone] Renée Aguirre Unavailable CM Complex Status:Enrolled (Active) Start date:04/26/2025 Enrollment date:05/04/2025 Enrollment reason:Referred by provider Overview Provider Referral- patient neds help to be remind about her appointments she has forgetfullness, she also has financial issues Case Team Name Relationship Phone Inez Wilson RN(Responsible Staff) Registered Nurse Continued Care and Services Coordination
--- OUTSIDE RECORDS SUMMARY | 2025-06-17 15:10 | XMS_ITS | Encounter Summary ---
Author Organization [employer] Address [address] [place] [address] 7[address] [place] [address] Care Team Providers Care Rn Wound Name Role Phone Latrice Tay MD Primary Care Provide r Inez Wilson RN Unavailable [phone] Renée Aguirre Unavailable Reason for Visit * Reason Comments Med Refill Encounter Details Date Type Department Care Team (Late st Contact Info) Description 12/13/2024 Refill [facility] CHC MED & PEDS [address] [place] [address] Latrice Tay MD [address] [place] [address] Nausea and vomiting, unspecified vomiting type Social [...] Info) Description 08/02/2025 2:00 PM EST Nutrition [facility] DIABETES/NUTRITION [address] [place] [address] [place] [address] documented as of this encounter Visit Diagnoses Diagnosis Nausea and vomiting, unspecified vomiting type documented in this encounter Additional Health Concerns Assessment Noted Time PHQ-9 Depression Total Score: 22 024 3:48 PM EDT documented as of this encounter Care Teams Rn Wound Relationship Specialty Start Date End Date Latrice Tay MD [address] [place] [address] PCP - General Family Medicine 08/27/18 Inez Wilson RN [address] [place], [place] [phone] Registered Nurse Family Medicine 04/26/25 Renée Aguirre 04/26/25 documented as of this encounter
--- OUTSIDE RECORDS SUMMARY | 2025-06-17 15:11 | XMS_ITS | Encounter Summary ---
Author Organization [employer] Address [address] [place] [address] [address] [place] [address] Care Team Providers Care Faro Dealer Name Role Phone Latrice Tay MD Primary Care Provide r Inez Wilson RN Unavailable [phone] Renée Aguirre Unavailable Reason for Visit * Reason Comments Med Refill Encounter Details Date Type Department Care Team ([facility] Contact Info) Description 12/05/2022 Refill [facility] MEDICINE [address] [place] [address] Neo Lemus MD [address] [place] [address] Social History Tobacco Use Types Packs/Day Years [...] suspected to have Coronavirus/COVID-19? No / Unsure 11/19/2022 1:49 PM EDT documented as of this encounter Plan of Treatment Upcoming Encounters Date Type Department Care Team (Late Contact Info) Description 08/02/2025 2:00 PM EST Nutrition [facility] DIABETES/NUTRITION [address] [place], [place] [phone] Rosette Cortez [address] [place] [address] documented as of this encounter Visit Diagnoses Not on filedocumented in this encounter Care Teams Faro Dealer Relationship Specialty Start Date End Date Latrice Tay MD [address] [place], [place] [phone] PCP - General Family Medicine 08/27/18 Inez Wilson, DUSTY [address] [place], [place] [phone] Registered Nurse Family Medicine 04/26/25 Renée Aguirre 04/26/25 documented as of this encounter
--- OUTSIDE RECORDS SUMMARY | 2025-06-17 15:11 | XMS_ITS | Clinical Summary ---
Author Organization [employer] Address [address] [facility] [address] [place] [address] Care Team Providers Care Gasoline Tester Name Role Phone Latrice Tay MD Primary Care Provide r Inez Wilson RN Unavailable [phone] Renée Aguirre Unavailable Allergies Active Allergy Reactions Criticality Noted Date Comments Aspirin 10/31/2016 Other reaction(s): SWELLING, hives Medications * This document contains information received from the source organization and may not represent a complete record from that organization. chlorhexidine (Peridex) 0.12 % solution Place 15 mL into mouth between cheek and gum every 12 (twelve) hours. 05/24/20 20 Active clonazePAM (KlonoPIN) 1 MG tablet Active topiramate (Topamax) 25 MG tablet Take 1 tablet by mouth at bed time. 02/08/20 21 Active acetaminophen (Tylenol 8 Hour) 650 MG ER tablet TAKE 1 TABLET BY MOUTH EVERY 8 HOURS NEEDED FOR MILD PAIN 30 tablet 04/29/20 23 Active QUEtiapine (SEROquel) 100 MG tablet Take 100 mg by mouth at bedtime. 01/08/20 24 Active nicotine polacrilex (Commit) 2 MG lozenge Dissolve 1 lozenge (2 mg) in the mouth if needed for smoking cessation. 100 lozenge 03/09/20 24 Active nicotine polacrilex (Commit) 2 MG lozenge Dissolve 1 lozenge (2 mg) in the mouth if needed for smoking cessation. Take 1 lozenge every 1-2 hours prn 100 lozenge 03/09/20 24 Active buprenorphine-nal oxone (Suboxone) 4-1 MG per sublingual filmIndications:O pioid dependence, uncomplicated (CMS/HCC) (HCC) Place 1 Film under the tongue every 12 (twelve) hours. 56 Film 1 09/17/19 25 Active omeprazole (PriLOSEC) [address] capsule TAKE 1 CAPSULE BY MOUTH EVERY DAY IN THE MORNING DO NOT BREAK, CRUSH, DISSOLVE OR CHEW 90 capsule 1 10/06/19 25 Active docusate sodium (Colace) 100 MG capsuleIndication s:Opioid dependence, uncomplicated (CMS/HCC) ([facility]) TAKE 1 CAPSULE BY MOUTH TWICE DAILY 180 capsule 03/29/20 25 Active ibuprofen 800 MG tablet TAKE 1 TABLET BY MOUTH EVERY 8 HOURS NEEDED FOR MILD PAIN 15 tablet 5 5:36 PM EST 06/02/20 25 Active cholecalciferol (Vitamin D-3) 25 MCG (1000 UT) tabletIndications :Vitamin D deficiency Take 1 tablet (25 mcg) by mouth Once per day. 60 tablet 1 5 8:15 AM EST 06/10/20 25 Active nitrofurantoin, macrocrystal-mono hydrate, (Macrobid) 100 MG capsuleIndication s:UTI symptoms Take 1 capsule (100 mg) by mouth 2 times daily for 7 days. 14 capsule 5 8:15 AM EST 06/10/20 25 2024 Active lactulose (Chronulac) 10 GM/15ML solutionIndicatio ns:Slow transit constipation Take 15 mL (10 g) by mouth Once per day for 10 days. 150 mL 5 8:15 AM EST 06/10/20 25 2025 Active ondansetron ODT (Zofran-ODT) 4 MG disintegrating tabletIndications :Chronic nausea,Nausea and vomiting, unspecified vomiting type DISSOLVE 1 TABLET UNDER THE TONGUE EVERY TWELVE HOURS NEEDED FOR NAUSEA 30 tablet 06/14/20 25 Active aspirin-acetamino phen-caffeine (Excedrin Migraine) 250-250-65 MG tablet Take 2 tablets every 8 hours prn as needed for headache 07/10/19 22 2024 Discontinued clotrimazole (Lotrimin) 1 % cream Apply topically every 12 (twelve) hours. 02/08/20 21 2024 Discontinued cyclobenzaprine (Flexeril) 5 MG tablet Take 1 tablet by mouth at bed time. 06/04/20 15 2024 Discontinued lactulose (Kristalose) 10 g packet Take 1 packet by mouth at bed time. 09/02/19 21 2024 Discontinued naloxone (Narcan) 4 mg/0.1 mL nasal spray Administer 0.1 mL into affected nostril(s). 04/18/20 20 2024 Discontinued nicotine polacrilex (Commit) 4 MG lozenge DISSOLVE 1 LOZENGE IN MOUTH EVERY 1-2 HOURS DIRECTED 100 lozenge 1 11/20/19 23 2024 Discontinued Diclofenac Sodium 1 % gelIndications:Ri ght elbow pain,Acute pain of right knee Apply topically to affected area twice a day as needed for pain 30 g 11/20/19 23 2024 Discontinued ondansetron ODT (Zofran-ODT) 4 MG disintegrating tabletIndications :Chronic nausea,Nausea and vomiting, unspecified vomiting type DISSOLVE 1 TABLET ENCIMA DE LENGUA EVERY TWELVE HOURS NEEDED FOR NAUSEA 30 tablet 5 5:00 PM EST 05/05/20 25 2024 Discontinued ibuprofen 800 MG tablet TAKE 1 TABLET BY MOUTH EVERY 8 HOURS NEEDED FOR MILD PAIN 15 tablet 5 4:39 PM EST 05/16/20 25 2024 Discontinued ondansetron ODT (Zofran-ODT) 4 MG disintegrating tabletIndications :Chronic nausea,Nausea and vomiting, unspecified vomiting type DISSOLVE 1 TABLET ON TONGUE EVERY TWELVE HOURS NEEDED FOR NAUSEA 30 tablet 06/02/20 25 2024 Discontinued Active Problems Problem Noted Date Diagnosed Date UTI symptoms 06/10/2025 Slow transit constipation 06/10/2025 Vitamin D deficiency 06/10/2025 Acute otitis externa of right ear 05/02/2025 Assessment & Plan (05/02/2025 4:48 PM EST): - Instill cortisporin ear drops, 2 drops, 4 times daily for one week. - Apply warm tea bags or a warm compress to the affected area to help with pain. - FU w PCP prn if sxs do not resolve Bipolar disorder, current episode mixed, moderat e ([facility]) 04/21/2025 Polyarthralgia 04/21/2025 TARA (generalized anxiety disorder) 02/11/2024 Calculus of left ureter 07/03/2023 07/03/19 24 Grief 07/03/2023 07/03/2023 Elevated liver enzymes 07/03/2023 Urinary urgency 07/03/2023 07/03/2023 Partial edentulism 01/22/2023 Major depressive disorder with psychotic feature s ([facility]) 12/02/2022 Assessment & Plan (02/12/2024 8:13 AM EDT): PROGRESS NOTE: ID: Rufina is a 43 y.o. White choose not to disclose-identified cis-female with previous documented hx of Depression, Anxiety, Opioid Use Disorder, and grief self reported history of Bipolar Disorder services including OP Psychotherapy psychopharmacology who presents for Depression and Anxiety During IBH Consult Rufina presenting with depressed mood, loss of interests/pleasure , changes in sleep difficulty falling asleep, difficulty staying asleep , and restless, unsatisfying sleep, change in appetite or weight reduce appetite, psychomotor agitation, trouble concentrating, fatigue/loss of energy, inappropriate guilt , worthlessness , auditory hallucinations, excessive worry/anxiety, difficulty controlling worry, restless/keyed up/On edge, easily fatigued, difficulty concentrating/Mind going blank , irritability, muscle tension, and sleep disturbance difficulty falling asleep, difficulty staying asleep , and restless, unsatisfying sleep, and grief sxs, emotional pain, avoidant of thoughts and places that reminded her of her son, intense yearning, identity disruption. She has been sober for 7 years, denies cravings, would like to taper down from suboxone, encouraged her to talk with provider to explore options; for a period of 18+ mo, for all symptoms in the context of son , increase in bills, financial struggle. . PLAN: Continue using effective coping mechanisms Continue with current services (defined as services in the past 12 months) Behavioral Health Integration Plan Patient Self Plan Patient to reach out to [facility] team as needed, Comply with medication , Patient to reach out to [facility] as needed, and Patient to follow-up with external team Assessment & Plan (12/02/2022 3:26 PM EDT): Assessment Rufina was engaged with active reflective listening and open-ended questions. Assessed symptoms, risks, and social supports with direct questions. Discussed current symptoms intensity and frequency. Emotions were normalized and validated. She identified praying as coping mechanisms and her other sons as protective factors. Provided psychoeducation around the grief process. Discussed OP therapy, she reported she is scheduled with her [facility] therapist tomorrow and has Psychiatrist at [facility] as well. Provided her Crisis number and my contact number for extra support. Plan:Delilah will continue to engage in effective coping mechanisms that has work for her in the past. Will keep her therapist and psychiatrist appt as well as her [facility] appt to avoid relapse. Patient with AH, low mood, sadness, grief due to recent loss of her son, in the context of been a person in recovery, with mental health problems. Patient will benefit from continuation of care with [facility]. At this time Rufina Davis meets criteria for Visit Diagnoses: Problem List Items Addressed This Visit Other Major depressive disorder with psychotic features ([facility]) Patient ready to address current needs Already engage in services Strengths include Rufina is resilient, has gnosticist beliefs, and know when to seek help. PLAN: 1. Follow up with [facility]: Recommended for follow-up: as needed for extra support. 2. Patient goal is been eliot to process this loss in a healthy way 3. Behavioral Recommendations a. Continuation of Care with [facility] b. Continue to use coping skills c. Reach out to this [facility] for extra support Opioid dependence, uncomplicated (CMS/HCC) 07/30 Tobacco dependence 07/30/2022 Periodontal disease 07/09/2022 Dental calculus 07/09/2022 Bilateral tinnitus 06/12/2022 Migraine aura without headache 06/12/2022 Overactive bladder 06/12/2022 Pain in female pelvis 06/12/2022 Urinary incontinence 06/12/2022 Abdominal pain 01/06/2018 Nausea 01/06/2018 Kidney stone 04/10/2015 Resolved Problems Problem Noted Date Diagnosed Date Resolved Date Vaginal discharge 06/12/2022 09/12/2022 Encounters Date Type Department Care Team Description 06/16/[address] [address] Latrice Tay MD Transportation 06/16/2025 Patient Outreach [address] [address] Latrice Tay MD Care Coordination ([facility] Renée Aguirre telephone call outreach) 06/13/2025 Refill [facility] [address] [place] [address] Latrice Tay MD Chronic nausea; Nausea and vomiting, unspecified vomiting type 06/10/2025 3:15 PM EST Telemedicine [address] [address] Latrice Tay MD UTI symptoms; Elevated liver enzymes; Slow transit constipation; Bipolar disorder, current episode mixed, moderate (CMS/HCC) (HCC); Vitamin D deficiency 06/10/2025 Travel 06/09/[address] [address] Latrice Tay MD chart prep 06/07/2025 Patient Outreach [address] [address] Latrice Tay MD Care Management (C3- FOLLOW UP CALL/) 06/07/2025 Patient Outreach [address] [address] Latrice Tay MD Care Coordination ([facility] Renée Aguirre pt 1 update) 06/01/2025 Refill [facility] [address] [place] [address] Latrice Tay MD Chronic nausea; Nausea and vomiting, unspecified vomiting type 05/25/2025 Patient Outreach [address] [address] Latrice Tay MD Care Management (C3- FOLLOW UP CALL/) 05/18/2025 Patient Outreach [address] [address] Latrice Tay MD 05/18/2025 Patient Outreach [address] [address] Latrice Tay MD Care Coordination ([facility]3 [facility] Renée Aguirre ) 05/16/2025 Refill [facility] [address] [place] [address] Latrice Tay MD 05/12/2025 Patient Outreach [address] [address] Latrice Tay MD Care Management (C3- FOLLOW UP CALL/) 05/06/2025 Patient Outreach [address] [address] Latrice Tay MD Care Coordination (DENTAL VISIT/[facility]) 05/05/2025 Refill [facility] [address] [place] [address] Latrice Tay MD Chronic nausea; Nausea and vomiting, unspecified vomiting type 05/04/2025 Plan of Care Documentation [address] [address] 05/04/2025 Plan of Care Documentation [address] [address] 05/04/2025 Patient Outreach [address] [address] Latrice Tay MD Care Coordination ([facility] Renée Aguirre) 05/04/2025 Patient Outreach [address] [address] Latrice Tay MD Care Management (C3 COMPLEX INITIAL ASSESSMENT/ ENROLLMENT ) 05/03/2025 Patient Outreach [address] [address] Latrice Tay MD Care Coordination ([facility]3 [facility] Renée Aguirre telephone call outreach) 05/02/2025 2:20 PM EST Office Visit [facility] [address] [address] Arcelia Sanchez MD Other infective acute otitis externa of right ear (Primary Dx) 05/02/2025 Travel 05/02/2025 Patient Outreach [address] [address] Latrice Tay MD Care Coordination (C3 -[facility] Aguirre telephone call outreach) 04/26/2025 Patient Outreach [address] [address] Latrice Tay MD Care Coordination ([facility] Aguirre chart review) 04/26/2025 Patient Outreach [address] [address] Latrice Tay MD Care Coordination ([facility] Renée Badilloz chart review ) 04/26/2025 Patient Outreach [address] [address] Latrice Tay MD Care Coordination ( ) 04/26/2025 Patient Outreach [address] [address] Latrice Tay MD Care Management (C3 -CHART REVIEW) 04/26/2025 Patient Outreach [address] [address] Latrice Tay MD 04/21/2025 1:00 PM EDT Office Visit [address] [address] Latrice Tay MD Dietary counseling; Exercise counseling; Class 1 obesity due to excess calories with serious comorbidity and body mass index (BMI) of 32.0 to 32.9 in adult; Major depressive disorder with psychotic features (CMS/HCC) (HCC); Kidney stone; Bipolar disorder, current episode mixed, moderate (CMS/HCC) (HCC); Polyarthralgia 04/21/2025 Travel 04/20/2025 [address]phone [address] [place] [address] Latrice Tay MD Chart Prep 04/14/2025 Telephone [facility] [address] [place] [phone] Latrice Tay MD Med Refill 04/14/2025 Patient Outreach [facility] [address] [place], [place] [phone] Latrice Tay MD Pre-visit Planning (SDOH was already completed ) 04/10/2025 Refill [facility] [address] [place], [place] [phone] Latrice Tay MD Chronic nausea; Nausea and vomiting, unspecified vomiting type 03/28/2025 Patient Outreach [facility] [address] [place] [phone] Alverto Watkins RC Recovery Supports 03/28/2025 Refill [facility] [address] [place] [phone] Cynthia Stiles NP Opioid dependence, uncomplicated ([facility]) 03/18/2025 Refill [facility] [address] [place], [place] [phone] Latrice Tay MD Chronic nausea; Nausea and vomiting, unspecified vomiting type from Last 3 Months Immunizations Immunization Administration Dates Next Due Hep B, adult 12/24/2016 Influenza injectable quadrivalent preservative f ree 10/20/2018,05/17/2017 Pfizer Covid-19 Vaccine 12+ 10/09/2021, Tdap 10/20/2018 Social History Tobacco Use Types Packs/Day Years Used Date Smoking Tobacco: Every Day Cigarettes 0.3 0.5 Passive Smoke Exposure: Never Smokeless Tobacco: Never Tobacco Cessation:Ready to Q uit: Yes; Counseling Given: Not Answered Alcohol Use Standard Drinks/Week Comments Never 0 [...] not to disclose 2021 10:22 AM EDT Last Filed Vital Signs Vital Sign Reading Time Taken Comments Blood Pressure 108/70 05/02/2025 2:24 PM EST Pulse 74 05/02/2025 2:24 PM EST Temperature 36.8 C (98.3 F) 05/02/2025 2:24 PM EST Respiratory Rate 16 05/02/2025 2:24 PM EST Oxygen Saturation 98% 04/21/2025 1:19 PM EDT Inhaled Oxygen Concentration - - Weight 93.5 kg (206 lb 3.2 oz) 05/02/2025 2:24 P M EST Height 174.6 cm (5' 8.75 ) 05/02/2025 2:24 PM ES T Body Mass Index 30.67 05/02/2025 2:24 PM EST Plan of Treatment Upcoming Encounters Date Type Department Care Team (Late st Contact Info) Description 08/02/2025 2:00 PM EST Nutrition [facility] DIABETES/NUTRITION [address] [place] [address] Rosette Cortez, RD [address] [place], [place] [phone] Health Maintenance Due Date Last Done Comments CT Colonography 1979 Colonoscopy 1979 FIT 1979 Sigmoidoscopy 1979 Disability Screening 1979 Family Planning (PISQ) 1994 HPV Vaccines (1 - 3-dose series) 1994 Pneumococcal Vaccine: Pediatrics (0 to 5 Years) and At-Risk Patients (6 to 49) Years (1 of 2 - PCV) 1998 Pap Smear 2000 Cervical Cancer Screening 2009 HPV/Cotest 2009 Hepatitis B Vaccines (2 of 3 - 19+ 3-dose series) 01/21/2017 12/24/2016 Mammogram 2019 Dental Oral Exam 10/19/2022 04/19/2022 Dental Prophylaxis 08/14/2023 02/10/2023, 03/05/2022 Dental X-Ray: Bitewings 12/21/2023 12/19/2022 COVID-19 Vaccine (3 - 2024-2 6 season) 2025 10/09/2021, 09/13/2021 Influenza Vaccine (#1) 2025 9, 05/17/2017 Depression Monitoring 12/09/2025 06/10/2025 , 06/10/2025 FOBT 01/18/2026 01/18/2025 Alcohol/Substance Use Screening 04/21/2026 04/21/2025 SDOH Screening 05/02/2026 05/02/2025 Tobacco Screening 06/10/2026 06/10/2025 Dental X-Ray: Full Mouth 07/10/2027 025, 03/05/2022, 03/05/2022 Colorectal Cancer Screening 01/19/2028 FIT DNA/Cologuard 01/19/2028 01/18/2025 DTaP/Tdap/Td Vaccines (2 - T d or Tdap) 10/20/2028 10/20/2018 Zoster Vaccines (1 of 2) 2029 Lipid Panel 04/21/2030 04/21/2025 RSV Patients and Patients Aged 60 years or older (1 - 1-dose 75+ series) 2054 HIV Screening Completed 04/21/2025, 08/08/2023, 10/22/2021 Hepatitis C Screening Completed 04/21/2025 , 10/22/2021 HIB Vaccines Aged Out No longer eligi ble based on patient's age to complete this topic Hepatitis A Vaccines Aged Out No long er eligible based on patient's age to complete this topic IPV Vaccines Aged Out No longer eligi ble based on patient's age to complete this topic Meningococcal B Vaccine Aged Out No l onger eligible based on patient's age to complete this topic Meningococcal Vaccine Aged Out No [place] eligible based on patient's age to complete this topic RSV under 20 months Aged Out No longe r eligible based on patient's age to complete this topic Rotavirus Vaccines Aged Out No longer eligible based on patient's age to complete this topic Procedures Procedure Name Priority Date/Time Associated Diagnosis Comments ARCELIA SCREEN, IFA, W/REFL TITER AND PATTERN Routine 04/21/2025 2:21 PM EDT Polyarthralgia SED RATE BY MODIFIED WESTERGREN Routine 04/21/2025 2:21 PM EDT Polyarthralgia CYCLIC CITRULLINATED PEPTIDE (CCP) AB (IGG) Routine 04/21/2025 2:21 PM EDT Polyarthralgia C-REACTIVE PROTEIN Routine 04/21/2025 2: 21 PM EDT Polyarthralgia TSH W/REFLEX TO FT4 Routine 04/21/2025 2 :21 PM EDT Class 1 obesity due to excess calories with serious comorbidity and body mass index (BMI) of 32.0 to 32.9 in adult Bipolar disorder, current episode mixed, moderate (CMS/HCC) (HCC) VITAMIN D,25-OH,TOTAL,IA Routine 04/21/2025 2:21 PM EDT Class 1 obesity due to excess calories with serious comorbidity and body mass index (BMI) of 32.0 to 32.9 in adult LIPID PANEL, STANDARD Routine 04/21/2025 2:21 PM EDT Class 1 obesity due to excess calories with serious comorbidity and body mass index (BMI) of 32.0 to 32.9 in adult HEPATITIS C AB W/REFL TO HCV RNA, QN, PCR Routine 04/21/2025 2:21 PM EDT Bipolar disorder, current episode mixed, moderate (CMS/HCC) (HCC) HIV 1/2 ANTIGEN/ANTIBODY, FOURTH GENERATION W/RFL Routine 04/21/2025 2:21 PM EDT Bipolar disorder, current episode mixed, moderate (CMS/HCC) (HCC) HEMOGLOBIN A1C Routine 04/21/2025 2:21 PM EDT Class 1 obesity due to excess calories with serious comorbidity and body mass index (BMI) of 32.0 to 32.9 in adult COMPREHENSIVE METABOLIC PANEL Routine 04/21/2025 2:21 PM EDT Class 1 obesity due to excess calories with serious comorbidity and body mass index (BMI) of 32.0 to 32.9 in adult CBC WITH AUTO DIFFERENTIAL Routine 04/21/2025 2:21 PM EDT Bipolar disorder, current episode mixed, moderate (CMS/HCC) (HCC) T-SPOT(R).TB Routine 04/21/2025 2:21 PM EDT Opioid dependence, uncomplicated (CMS/HCC) (HCC) SYPHILIS SCREEN Routine 04/21/2025 2:21 PM EDT Opioid dependence, uncomplicated (CMS/HCC) (HCC) HEPATITIS A ANTIBODY, TOTAL Routine 04/21/2025 2:21 PM EDT Opioid dependence, uncomplicated (CMS/HCC) (HCC) HEPATIC FUNCTION PANEL Routine 04/21/2025 2:21 PM EDT Opioid dependence, uncomplicated (CMS/HCC) (HCC) LAB COLOGUARD COLON CANCER SCREEN Routine 01/18/2025 11:00 AM EDT Screening for colon cancer PROPHYLAXIS - ADULT Routine 02/10/2023 3 :00 PM EDT Periodontal disease Dental calculus BITEWING - SINGLE RADIOGRAPHIC IMAGE Routine 12/19/2022 2:00 PM EDT Dental caries Symptomatic irreversible pulpitis from Last 3 Months or Most Recently Relevant to Health Maintenance Results * Syphilis Screen (04/21/2025 2:21 PM EDT) Syphilis Screen Nonreactive Nonreactive [facility] Blood 04/21/2025 2:21 PM EDT 04/21/2025 4:00 PM EDT us Neo Lemus MD LAB BLOOD ORDERABLES Final Resul t [facility] [address] [place] [phone] * (ABNORMAL) Vitamin D, 25-Hydroxy, Total, Immunoassay (04/21/2025 2:21 PM EDT) Vitamin D 25-OH Total 20.3(L) >30 ng/mL [facility] Comment: Health Based Reference Values*< 20 ng/mL [id number] ng/mL Insufficient> 30 ng/mL Sufficient*Blanca LAN. N Engl J Med. 2007;357:266-280There is no well-established upper level of normal vitamin Dlevels. Some laboratories use 50 ng/mL as an upper limit ofnormal. However, toxicity is patient-dependent and may occurat any level. Careful correlation with the patient'spresentation is necessary and, if there is concern forvitamin D toxicity, treatment should be consideredirrespective of the serum level.Care must be taken in interpreting Vitamin D results fromdifferent laboratories and methodologies. Published datademonstrated that results from patients undergoinghemodialysis may show a negative bias when tested withvarious automated 25-OH vitamin D assays when compared toLC-MS/MS.When testing samples from patients whose predominant form ofVitamin D is Vitamin D2, such as patients receiving VitaminD2 supplementation, results that are subtherapeutic shouldbe confirmed with another method such as LC-MS/MS. Blood Venous blood specimen / Unknown 04/21/2025 2:21 PM EDT 04/21/2025 4:00 PM EDT us Latrice Benavidez MD LAB BLOOD ORDERABLES Final Result [facility] [address] [place] [phone] * T-SPOT??.TB (04/21/2025 2:21 PM EDT) T Spot TB Negative Negative [facility] Comment:A negative test resu lt does not exclude the possibilityof exposure to or infection with Mycobacteriumtuberculosis (M. tuberculosis). Patients with recentexposure to TB infected individuals exhibiting anegative T-SPOT.TB result should be considered forretesting within 6 weeks or if other relevant clinicalsymptoms indicate. Results from T-SPOT.TB testing mustbe used in conjunction with each individual'sepidemiological history, current medical status,and results of other diagnostic evaluations.The T-SPOT.TB test is qualitative and results arereported as positive, borderline, or negative, giventhat the test controls perform as expected. In linewith the Centers for Disease Control and Prevention's2010 recommendation to report quantitative measurementsalongside the qualitative result, the laboratoryprovides spot counts for informational purposes only.The T-SPOT.TB test should not be interpreted as aquantitative test. TS PANEL A 0 [facility] TS PANEL B 0 [facility] Negative Control Passed [facility] Positive Control Passed [facility] Comment:For additional infor lolis, please refer tohttp://education.questdiagnostics.com/faq/QGO200(This link is being provided for informational/educational purposes only.)THIS TEST WAS PERFORMED AT:[id number] [place] [id number] Jn BROOKS MD,PHD 04/21/2025 2:21 PM EDT 04/21/2025 4:00 PM EDT us Neo Lemus MD LAB BLOOD ORDERABLES Final Resul t Performing Organization Address [facility] Co de Phone Number [facility] [address] [place] [phone] * TSH with Reflex to Free T4 (04/21/2025 2:21 PM EDT) Pathologist [facility] TSH reflex Free T4 1.97 0.32 - 4.0 uIU/mL [facility] Blood Venous blood specimen / Unknown 04/21/2025 2:21 PM EDT 04/21/2025 4:00 PM EDT us Latrice Benavidez MD LAB BLOOD ORDERABLES Final Result Performing Organization Address [facility] Co de Phone Number [facility] [address] [place] [phone] * (ABNORMAL) CBC auto differential (04/21/2025 2:21 PM EDT) White Blood Count 5.4 4.8 - 10.8 X10*3/uL [facility] Red Blood Count 4.10(L) 4.20 - 5.50 X10*6/uL [facility] Hemoglobin 12.2 12.0 - 16.0 g/dl [facility] Hematocrit 36.2(L) 37.0 - 47.0 % [facility] Mean Corpuscular Volume 88.3 80.0 - 98.0 fL [facility] Mean Corpuscular Hemoglobin 29.8 27.0 - 33.0 pg [facility] Mean Corpuscular HGB Conc 33.7 31.0 - 35.0 g/dl [facility] Red Cell Distribution Width 13.0 11.0 - 16.0 % [facility] Platelet Count 260 160 - 400 X10*3/uL [facility] Mean Platelet Volume 10.1 9.4 - 12.3 fL [facility] Neutrophils Percent Auto 40.6(L) 45 - 73 % [facility] Imm Gran Pct Auto 0.4 0.0 - 0.4 % [facility] Lymphocytes Percent Auto 52.7(H) 20 - 40 % [facility] Monocytes Percent Auto 5.2 2 - 11 % [facility] Eosinophils Percent Auto 0.7 0 - 4 % [facility] Basophils Percent Auto 0.4 0 - 2 % [facility] NRBC Pct Auto 0.0 0.0 - 0.2 /100WBC [facility] Neutrophils Absolute Auto 2.2 2.0 - 8.3 x10*3/uL [facility] Imm Gran Abs Auto 0.02 0.00 - 0.03 X10*3/uL [facility] Lymphocytes Absolute Auto 2.8 1.2 - 4.9 X10*3/uL [facility] Monocytes Absolute Auto 0.3 0.1 - 1.2 X10*3/uL [facility] Eosinophils Absolute Auto 0.0 0.0 - 0.4 X10*3/uL [facility] Basophils Absolute Auto 0.0 0.0 - 0.2 X10*3/uL [facility] NRBC Abs Auto 0.000 0.0 - 0.012 X10*3/uL [facility] Blood Venous blood specimen / Unknown 04/21/2025 2:21 PM EDT 04/21/2025 4:00 PM EDT us Latrice Benavidez MD LAB BLOOD ORDERABLES Final Result [facility] [address] [place] [phone] * Hepatitis C Antibody with Reflex to HCV, RNA, Quantitative, Real-Time PCR (04/21/2025 2:21 PM EDT) [facility] Hepatitis C Antibody Nonreactive Nonreactive [facility] Comment:Antibodies to HCV no t detected; does not exclude early acuteHCV infection. Blood Venous blood specimen / Unknown 04/21/2025 2:21 PM EDT 04/21/2025 4:00 PM EDT Latrice Benavidez MD LAB BLOOD ORDERABLES Final Result Performing Organization Address [facility] Co de Phone Number [facility] [address] [place] [phone] * Cyclic Citrullinated Peptide (CCP) Antibody (IgG) (04/21/2025 2:21 PM EDT) [facility] Cyclic Citrullinated Peptide <16 UNITS [facility] Comment:Reference RangeNegat gonzales: <20Weak Positive: 20-39Moderate Positive: 40-59Strong Positive: >59THIS TEST WAS PERFORMED AT:[facility] [address] [phone] OREILLY MD Blood Venous blood specimen / Unknown 04/21/2025 2:21 PM EDT 04/21/2025 4:00 PM EDT Latrice Benavidez MD LAB BLOOD ORDERABLES Final Result Performing Organization Address [facility]/ZIP Co de Phone Number [facility] [address] [place] [phone] * Hepatitis A Antibody, Total (04/21/2025 2:21 PM EDT) [facility] Hepatitis A Antibody IgG Nonreactive Nonreactive [facility] Blood Venous blood specimen / Unknown 04/21/2025 2:21 PM EDT 04/21/2025 4:00 PM EDT us Neo Lemus MD LAB BLOOD ORDERABLES Final Resul t Performing Organization Address [facility] Co de Phone Number [facility] [address] [place] [phone] * HIV-1/2 Antigen and Antibodies, Fourth Generation, with Reflexes (04/21/2025 2:21 PM EDT) Pathologist [facility] HIV AB/AG Nonreactive Nonreactive [facility] Comment:HIV-1 p24 Ag and/or HIV-1/HIV-2 Ab not detected.A test result that is nonreactive does not exclude thepossibility of exposure to or infection with HIV-1 and/orHIV-2. Nonreactive results in this assay for individualswith prior exposure to HIV-1 and/or HIV-2 may be due toantigen and antibody levels that are below the limit ofdetection of this assay.The [employer] HIV Ag/Ab Combo assay result andsupplemental assay results should be interpreted inconjunction with the patient's clinical presentation,history and other laboratory results. If the results areinconsistent with clinical evidence, additional testing issuggested to confirm the result. Blood Venous blood specimen / Unknown 04/21/2025 2:21 PM EDT 04/21/2025 4:00 PM EDT us Latrice Benavidez MD LAB BLOOD ORDERABLES Final Result Performing Organization Address City/[facility]/ZIP Co de Phone Number [facility] [address] [place] [phone] * Sed Rate by Modified Lico (04/21/2025 2:21 PM EDT) [facility] Erythrocyte Sedimentation Rate 13 0 - 20 MM/HR [facility] Comment:Patients with polycy themia and many hemoglobin abnormalitiesmay have depressed sed rates whereas patients with anemiamay have elevated sed rates. Blood Venous blood specimen / Unknown 04/21/2025 2:21 PM EDT 04/21/2025 4:00 PM EDT us Latrice Benavidez MD LAB BLOOD ORDERABLES Final Result Performing Organization Address City/[facility]/ZIP Co de Phone Number [facility] [address] [place] [phone] * C-reactive Protein (04/21/2025 2:21 PM EDT) Pathologist [facility] C Reactive Protein 0.34 < or = 0.50 mg/dL [facility] Blood Venous blood specimen / Unknown 04/21/2025 2:21 PM EDT 04/21/2025 4:00 PM EDT us Latrice Benavidez MD LAB BLOOD ORDERABLES Final Result Performing Organization Address [facility] Co de Phone Number [facility] [address] [place] [phone] * ARCELIA Screen,IFA, with Reflex to Titer and Pattern (04/21/2025 2:21 PM EDT) Pathologist [facility] Anti Nuclear Antibody Screen NEGATIVE NEGATIVE [facility] Comment:ARCELIA IFA is a first l ine screen for detecting thepresence of up to approximately 150 autoantibodies invarious autoimmune diseases. A negative ARCELIA IFA resultsuggests an ARCELIA-associated autoimmune disease is notpresent at this time, but is not definitive. If thereis high clinical suspicion for Sjogren's syndrome,testing for anti-SS-A/Ro antibody should be considered.Anti-Lauren-1 antibody should be considered for clinicallysuspected inflammatory myopathies.AC-0: NegativeInternational Consensus on ARCELIA Patterns(https://doi.org/10.1515/ewha-1876-3456)For additional information, please refer tohttp://education.ShopEx/faq/QKF869(This link is being provided for informational/educational purposes only.)THIS TEST WAS PERFORMED AT:[email or web address] [place] [phone] OREILLY MD ARCELIA Titer TNP [facility] ARCELIA Pattern TNP [facility] ARCELIA Titer 2 TNP [facility] ARCELIA Pattern 2 TNP [facility] ARCELIA TITER 3 TNP [facility] PATTERN 3 [facility] Blood Venous blood specimen / Unknown 04/21/2025 2:21 PM EDT 04/21/2025 4:05 PM EDT us Latrice Benavidez MD LAB BLOOD ORDERABLES Final Result Performing Organization Address [facility] Co de Phone Number [facility] [address] [place] [phone] * Hemoglobin A1c (04/21/2025 2:21 PM EDT) Hemoglobin A1c 5.3 <6.0 % [facility] Comment:Hemoglobin A1C Refer ence Range Adults: 4.8 - 6.0 % Non diabetic: < 6.0 % Goal: < 7.0 %Additional Action Suggested: > 8.0 %Note: Hemoglobin A1c results are invalid for patients with abnormal amounts of HbF. Blood transfusions may impact the HbA1c concentration in the patient sample. Estimated Average Glucose 105 mg/dL [facility] Comment:eAG = Estimated ave rage glucose which is %A1C expressed asaverage glucose, using the formula of the R1W-PgusvxhYzsobkr Glucose study (ADAG), Diabetes Care, Vol.31,#8,2007 Blood Venous blood specimen / Unknown 04/21/2025 2:21 PM EDT 04/21/2025 4:00 PM EDT us Latrice Benavidez MD LAB BLOOD ORDERABLES Final Result Performing Organization Address [facility] Co de Phone Number [facility] [address] [place] [phone] * Hepatic Function Panel (04/21/2025 2:21 PM EDT) Bilirubin, Direct <0.2 0.0 - 0.5 mg/dL [facility] Blood Venous blood specimen / Unknown 04/21/2025 2:21 PM EDT 04/21/2025 4:00 PM EDT us Neo Lemus MD LAB BLOOD ORDERABLES Final Resul t Performing Organization Address [facility] Co de Phone Number [facility] [address] [place] [phone] * (ABNORMAL) Lipid Panel, Standard (04/21/2025 2:21 PM EDT) Triglycerides 178(H) <150 mg/dL [facility] Comment:Desirable Triglyceri de: less than 150 mg/dLBorderline High Triglyceride 150-199 mg/dLHigh Triglyceride: 200-499 mg/dLVery High Triglyceride: greater than or equal to 5OO mg/dL Cholesterol 139 <200 mg/dL [facility] Comment:Desirable Cholestero l: less than 200 mg/dLBorderline High Cholesterol: 200-239 mg/dLHigh Cholesterol: greater than 239 mg/dL LDL Cholesterol Calculated 64 <100 mg/dL [facility] Comment:Desirable LDL: less than 100 mg/dLNear Optimal/Above Optimal LDL: 110- 129 mg/dLBorderline High LDL: 130-159 mg/dLHigh LDL: 160-189 mg/dLVery High LDL: greater than or equal to 190 mg/dL HDL Cholesterol 40(L) >40 mg/dL [facility] Comment:Desirable HDL: great er than 40 mg/dL Note: This HDL assay may give artificially low results in patients with liver disease. Blood Venous blood specimen / Unknown 04/21/2025 2:21 PM EDT 04/21/2025 4:00 PM EDT us Latrice Benavidez MD LAB BLOOD ORDERABLES Final Result Performing Organization Address [facility]/ZIP Co de Phone Number [facility] [address] [place] [phone] * (ABNORMAL) Comprehensive Metabolic Panel (04/21/2025 2:21 PM EDT) Pathologist [facility] Sodium 141 135 - 145 mmol/L [facility] Potassium 4.2 3.3 - 5.1 mmol/L [facility] Chloride 107 96 - 108 mmol/L [facility] Carbon Dioxide 27 22 - 29 mmol/L [facility] Anion Gap 11(L) 12 - 20 [facility] Urea Nitrogen (BUN) 7(L) 9 - 16 mg/dL [facility] Creatinine, Serum 0.65 0.5 - 1.4 mg/dL [facility] Estimated Glomerular Filt Rate >60 [facility] Comment:Chronic Kidney Disea se: Estimated GFR < 60 mL/min/1.63k3Dyeyla Kidney Disease: Estimated GFR < 15 mL/min/1.73m2 Glucose 96 60 - 115 mg/dL [facility] Calcium 9.0 8.4 - 10.2 mg/dL [facility] Bilirubin, Total 0.1 0.0 - 1.0 mg/dL [facility] Aspartate Amino Transferase 33(H) 5 - 31 U/L [facility] Alanine Aminotransferase 16 0 - 31 U/L [facility] Total Protein 7.7 6.5 - 8.0 g/dL [facility] Albumin Level 4.5 3.5 - 5.0 g/dL [facility] Alkaline Phosphatase 79 39 - 117 U/L [facility] Blood Venous blood specimen / Unknown 04/21/2025 2:21 PM EDT 04/21/2025 4:00 PM EDT us Ltarice Benavidez MD LAB BLOOD ORDERABLES Final Result [facility] [address] [place] [phone] * Cologuard?? colon cancer screening (01/18/2025 11:00 AM EDT) Pathologist [facility] Cologuard Result Negative Negative 02/04/20 25 4:34 PM EDT [facility] (CLIA #:[id number]) Comment: The Cologuard (TM) test was performed on this specimen. NEGATIVE TEST RESULT. A negative Cologuard result indicates a low likelihood that a colorectal cancer (CRC) or advanced adenoma (adenomatous polyps with more advanced pre-malignant features) is present. The chance that a person with a negative Cologuard test has a colorectal cancer is less than 1 in 1500 (negative predictive value >99.9%) or has an advanced adenoma is less than 5.3% (negative predictive value 94.7%). These data are based on a prospective cross-sectional study of 10,000 individuals at average risk for colorectal cancer who were screened with both Cologuard and colonoscopy. (Chace Ledezma et al, N Engl J Med 2014;370(14):1286- 1297) The normal value (reference range) for this assay is negative. COLOGUARD RE-SCREENING RECOMMENDATION: Periodic colorectal cancer screening is an important part of preventive healthcare for asymptomatic individuals at average risk for colorectal cancer. Following a negative Cologuard result, the [place] [employer] Society and U.S. Multi-Society Task Force screening guidelines recommend a Cologuard re-screening interval of 3 years. References: [place] [employer] Guideline for Colorectal Cancer Screening: https://www.cancer.org/cancer/awctr-mpflgx-kaimja/goidlzjzv-jmbzcpcei-zolotxz/ac s-rec ommendations.html.; Sukhdev DK, Gwyn CR, Corona WintersK, Colorectal Cancer Screening: Recommendations for Physicians and Patients from the U.S. Multi-Society Task Force on Colorectal Cancer Screening , Am J Gastroenterology 2017; 112:9884-1307. TEST DESCRIPTION: Composite algorithmic analysis of stool DNA-biomarkers with hemoglobin immunoassay. Quantitative values of individual biomarkers are not reportable and are not associated with individual biomarker result reference ranges. Cologuard is intended for colorectal cancer screening of adults of either sex, 45 years or older, who are at average-risk for colorectal cancer (CRC). Cologuard has been approved for use by the U.S. FDA. The performance of Cologuard was established in a cross sectional study of average-risk adults aged 50-84. Cologuard performance in patients ages 45 to 49 years was estimated by sub-group analysis of near-age groups. Colonoscopies performed for a positive result may find as the most clinically significant lesion: colorectal cancer [4.0%], advanced adenoma (including sessile serrated polyps greater than or equal to 1cm diameter) [20%] or non- advanced adenoma [31%]; or no colorectal neoplasia [45%]. These estimates are derived from a prospective cross-sectional screening study of 10,000 individuals at average risk for colorectal cancer who were screened with both Cologuard and colonoscopy. (Chace Mckinney al, N Engl J Med 2014;370(14):4329-6224.) Cologuard may produce a false negative or false positive result (no colorectal cancer or precancerous polyp present at colonoscopy follow up). A negative Cologuard test result does not guarantee the absence of CRC or advanced adenoma (pre-cancer). The current Cologuard screening interval is every 3 years. ([place] [employer] and U.S. Multi-Society Task Force). Cologuard performance data in a 10,000 patient pivotal study using colonoscopy as the reference method can be accessed at the following location: www.[email or web address].PulsePoint/results. Additional description of the Cologuard test process, warnings and precautions can be found at [email or web address]. Stool specimen (specimen) 01/18/2025 11:00 AM EDT 01/20/2025 10:06 AM EDT Latrice Benavidez MD LAB MOLECULAR DIAGNOS TICS ORDERABLES Final Result [facility] (CLIA #:[id number]) [address] [place] [address], from Last 3 Months or Most Recently Relevant to Health Maintenance [facility] Care Teams Gasoline Tester Relationship Specialty Start Date End Date Latrice Tay MD [address], [place] PCP - General Family Medicine 08/27/18 Inez Wilson RN [address], [place] Registered Nurse Family Medicine 04/26/25 Renée Aguirre 04/26/25
--- OUTSIDE RECORDS SUMMARY | 2025-06-17 15:11 | XMS_ITS | Encounter Summary ---
Author Organization [employer] Address [address] [place] [address] 7 [place] [address] Care Team Providers Care Cobol Programmer Name Role Phone Latrice Tay MD Primary Care Provide r Inez Wilson RN Unavailable [phone] Renée Aguirre Unavailable Reason for Visit * Reason Comments Care Coordination [facility] Renée plummer telephone call outreach Encounter Details Date Type Department Care Team (Latest Contact Info) Description 06/16/2025 Patient Outreach [facility] MEDICINE [address] [place] [address] Latrice Tay MD [address] [place] [address] Care Coordination [facility] telephone call outreach) Social History Tobacco Use Types Packs/Day Years [...] your housing situation today? I have ifeanyi sing 02/21/[address] you li [...] AM EDT documented as of this encounter Progress Notes * Renée Aguirre - 06/16/2025 10:17 AM EST CHW Renée Aguirre placed outbound call to patient introducing herself from [facility] CM Department, in regards to remind patient of appt for 06/17/25 @ 1:45 PM. Patient's name and was confirmed. Patient is aware and confirmed will be available and has no barriers on attending this appointment. Patient verbalized understanding and agrees with plan. documented in this encounter Plan of Treatment Upcoming Encounters Date Type Department Care Team ([facility] st Contact Info) Description 08/02/2025 2:00 PM EST Nutrition [facility] DIABETES/NUTRITION [address], [place] [phone] Rosette Cortez, RD [address] [place] [phone] documented as of this encounter Visit Diagnoses Not on filedocumented in this encounter Additional Health Concerns Assessment Noted Time PHQ-9 Depression Total Score: 24 025 2:41 PM EST documented as of this encounter Care Teams Cobol Programmer Relationship Specialty Start Date End Date Latrice Tay MD [address] [place] [address] PCP - General Family Medicine 08/27/18 Inez Wilson, DUSTY [address], [place] [phone] Registered Nurse Family Medicine 04/26/25 Renée Aguirre 04/26/25 documented as of this encounter
--- OUTSIDE RECORDS SUMMARY | 2025-06-17 15:11 | XMS_ITS | Encounter Summary ---
Author Organization [employer] Address [address] [place] [address] [address] [place] [address] Care Team Providers Care Special Skills Officer Name Role Phone Latrice Tay MD Primary Care Provide r Inez Wilson RN Unavailable [phone] Renée Aguirre Unavailable Encounter Details Date Type Department Care Team (Late st Contact Info) Description 02/26/2023 Orders Only [facility] MEDICINE [address] [place], [place] [phone] Comfort Danielson RN Opioid dependence, uncomplicated (CMS/HCC) (Primary Dx) Social History Tobacco Use Types Packs/Day Years [...] Info) Description 08/02/2025 2:00 PM EST Nutrition [facility] DIABETES/NUTRITION [address] [place], [place] [phone] Rosette Cortez, RD [address] [place], [place] [phone] Scheduled Orders Name Type Priority Associated Diagnoses Orde r Schedule Hepatitis C Antibody with Reflex to HCV, RNA, Quantitative, Real-Time PCR Lab Routine Opioid dependence, uncomplicated (CMS/HCC) Expected: 02/26/2023 (Approximate), Expires: 02/27/2024 HIV-1/2 Antigen and Antibodies, Fourth Generation, with Reflexes Lab Routine Opioid dependence, uncomplicated (CMS/HCC) Expected: 02/26/2023 (Approximate), Expires: 02/27/2024 QuantiFERON TB Gold Lab Routine Opioid dependence, uncomplicated (CMS/HCC) Expected: 02/26/2023 (Approximate), Expires: 02/27/2024 Syphilis Screen Lab Routine Opioid dependence, uncomplicated (CMS/HCC) Expected: 02/26/2023 (Approximate), Expires: 02/27/2024 T-SPOT .TB Lab Routine Opioid dependence, uncomplicated (CMS/HCC) Expected: 02/26/2023 (Approximate), Expires: 02/27/2024 documented as of this encounter Visit Diagnoses Diagnosis Opioid dependence, uncomplicated (CMS/HCC) (HCC)- Primary documented in this encounter Care Teams Special Skills Officer Relationship Specialty Start Date End Date Latrice Tay MD [address] [place] [phone] PCP - General Family Medicine 08/27/18 Inez Wilson, DUSTY [address] [place] [phone] Registered Nurse Family Medicine 04/26/25 Renée Aguirre 04/26/25 documented as of this encounter
--- OUTSIDE RECORDS SUMMARY | 2025-06-17 15:11 | XMS_ITS | Encounter Summary ---
Author Organization [employer] Address [address] [place] [address] [address] [place] [address] Care Team Providers Care Office Professionals Name Role Phone Latrice Tay MD Primary Care Provide r Inez Wilson RN Unavailable [phone] Renée Aguirre Unavailable Reason for Visit * Reason Comments Med Refill Encounter Details Date Type Department Care Team (Late Contact Info) Description 03/28/2023 Refill [facility] MEDICINE [address] [place] [address] Neo Lemus MD [address] [place] [address] Opioid dependence, uncomplicated (CMS/HCC) Social History Tobacco [...] Info) Description 08/02/2025 2:00 PM EST Nutrition [facility] DIABETES/NUTRITION [address] [place] [address] [place] [address] documented as of this encounter Visit Diagnoses Diagnosis Opioid dependence, uncomplicated (CMS/HCC) (HCC) documented in this encounter Care Teams Office Professionals Relationship Specialty Start Date End Date Latrice Tay MD [address], [place] [phone] PCP - General Family Medicine 08/27/18 Inez Wilson, DUSTY [address] [place] [phone] Registered Nurse Family Medicine 04/26/25 Renée Aguirre 04/26/25 documented as of this encounter
--- OUTSIDE RECORDS SUMMARY | 2025-06-17 15:11 | XMS_ITS | Encounter Summary ---
Author Organization [employer] Address [address] [place] [address] [address] [place] [address] Care Team Providers Care Powder And Primer Canning Leader Name Role Phone Latrice Tay MD Primary Care Provide r Inez Wilson RN Unavailable [phone] Renée Aguirre Unavailable Encounter Details Date Type Department Care Team (Late Contact Info) Description 02/11/2023 Abstract [facility] ADULT DENTAL [address] [place] [address] Akhil, Sara [address] [place] [address] Social History Tobacco Use Types Packs/Day Years [...] Info) Description 08/02/2025 2:00 PM EST Nutrition [facility] DIABETES/NUTRITION [address] [place] [address] Rosette Cortez, RD [address] [place] [address] documented as of this encounter Visit Diagnoses Not on filedocumented in this encounter Care Teams Powder And Primer Canning Leader Relationship Specialty Start Date End Date Latrice Tay MD [address] [place], [place] [phone] PCP - General Family Medicine 08/27/18 Inez Wilson RN [address] [place], [place] [phone] Registered Nurse Family Medicine 04/26/25 Renée Aguirre 04/26/25 documented as of this encounter
--- OUTSIDE RECORDS SUMMARY | 2025-06-17 15:11 | XMS_ITS | Encounter Summary ---
Author Organization [employer] Address [address] [place] [address] [address] [place] [address] Care Team Providers Care Particle Board Supervisor Name Role Phone Latrice Tay MD Primary Care Provide r Inez Wilson RN Unavailable [phone] Renée Aguirre Unavailable Reason for Visit * Reason Comments Med Refill Encounter Details Date Type Department Care Team (Late st Contact Info) Description 12/15/2024 Refill [facility] MED & PEDS [address] [place] [address] Latrice Tay MD [address] [place] [address] Nausea and vomiting, unspecified vomiting type Social [...] Info) Description 08/02/2025 2:00 PM EST Nutrition [facility] DIABETES/NUTRITION [address] [place] [address] [place] [address] documented as of this encounter Visit Diagnoses Diagnosis Nausea and vomiting, unspecified vomiting type documented in this encounter Additional Health Concerns Assessment Noted Time PHQ-9 Depression Total Score: 22 024 3:48 PM EDT documented as of this encounter Care Teams Particle Board Supervisor Relationship Specialty Start Date End Date Latrice Tay MD [address] [place] [address] PCP - General Family Medicine 08/27/18 Inez Wilson RN [address] [place], [place] [phone] Registered Nurse Family Medicine 04/26/25 Renée Aguirre 04/26/25 documented as of this encounter
--- OUTSIDE RECORDS SUMMARY | 2025-06-17 15:11 | XMS_ITS | Encounter Summary ---
Author Organization [employer] Address [address] [place] [address] [address] [place] [address] Care Team Providers Care Automatic Clipper And Stripper Name Role Phone Latrice Tay MD Primary Care Provide r Inez Wilson RN Unavailable [phone] Renée Aguirre Unavailable Reason for Visit * Reason Comments Med Refill Encounter Details Date Type Department Care Team (Late Contact Info) Description 03/13/2023 Refill [facility] MEDICINE [address] [place] [address] Helder Benavides MD [address] [place] [address] Opioid dependence, uncomplicated (CMS/HCC) Social History Tobacco [...] Info) Description 08/02/2025 2:00 PM EST Nutrition [facility] DIABETES/NUTRITION [address] [place] [address] [place] [address] documented as of this encounter Visit Diagnoses Diagnosis Opioid dependence, uncomplicated (CMS/HCC) (HCC) documented in this encounter Care Teams Automatic Clipper And Stripper Relationship Specialty Start Date End Date Latrice Tay MD [address] [place], [place] [phone] PCP - General Family Medicine 08/27/18 Inez Wilson, DUSTY [address] [place] [address] [phone] Registered Nurse Family Medicine 04/26/25 Renée Aguirre 04/26/25 documented as of this encounter
--- OUTSIDE RECORDS SUMMARY | 2025-06-17 15:11 | XMS_ITS | Encounter Summary ---
Author Organization [employer] Address [address] [place] [address] [address] [place] [address] Care Team Providers Care Clerk Of Superior [address] Name Role Phone Latrice Tay MD Primary Care Provide r Inez Wilson RN Unavailable [phone] Renée Aguirre Unavailable Reason for Visit * Reason Onset Date Comments Transportation 06/16/2025 Encounter Details Date Type Department Care Team ([facility] st Contact Info) Description 06/16/2025 Telephone [facility] MEDICINE [address] [place] [address] Latrice Tay MD [address] [place], [place] [phone] Transportation Social History Tobacco Use Types Packs/Day Years [...] encounter Miscellaneous Notes * Telephone Encounter - Miguelito Hummel - 06/16/2025 11:31 AM EST Tc from pt requesting a call back stating she is supposed to have transportation for an [place] [facility] [place] but she has not received a call back. Please contact pt at [phone]. (Romanian Speaker) documented in this encounter Plan of Treatment Upcoming Encounters Date Type Department Care Team (Late st Contact Info) Description 08/02/2025 2:00 PM EST Nutrition [facility] DIABETES/NUTRITION [address] [place] [address] Rosette Cortez, RD [address] [place], [place] [phone] documented as of this encounter Visit Diagnoses Not on filedocumented in this encounter Additional Health Concerns Assessment Noted Time PHQ-9 Depression Total Score: 24 025 2:41 PM EST documented as of this encounter Care Teams Clerk Of Superior Court Relationship Specialty Start Date End Date Latrice Tay MD [address] [place] [address] PCP - General Family Medicine 08/27/18 Inez Wilson RN [address] [place] [address] Registered Nurse Family Medicine 04/26/25 Renée Aguirre 04/26/25 documented as of this encounter
== END 2025-06-17 14:43 | disposition home or self-care (01) ==
LOC: HO.HUSH 13:29
PROVIDERS: PCP Internal Medicine; Visit Provider Urology
DX: N20.0 Calculus of kidney (principal)
CPT/HCPCS: 99214

== ENCOUNTER → 2025-06-17 13:29 | Outpatient (BNVA) | payer MEDICAID, SELFPAY | PROVIDERS: PCP Internal Medicine; Visit Provider Urology | DX: N20.0 Calculus of kidney (principal) | CPT/HCPCS: 99212 ==